=== PATIENT | female | born 1970 | race Caucasian/White ===

== ENCOUNTER 2021-12-23 11:25 | Emergency (ER) | payer BC, SELFPAY ==
[2021-12-23 11:43] VITALS: BP 167/91; PULSE 99; RESP 20; TEMP 36.4; O2SAT 98; BMI 33.3
--- NOTE | 2021-12-23 12:23 | CRLHL7_ITS ---
For Patients: As a result of the Century Cures Act, medical imaging exams and procedure reports are released immediately into your electronic medical record. You may view this report before your referring provider. If you have questions, please contact your health care provider. INDICATION: Right-sided neck pain and swelling TECHNIQUE: CT of the neck with 81 ml iodinated contrast agent. Coronal and sagittal reconstructions are included. COMPARISON: None available FINDINGS: On the night clerk auditor images, there appears to be a radiopaque BB in the right submandibular region, which is not included on the conventional images. No suspicious soft tissue mass, focal fluid collection, or pathologic lymphadenopathy in the region of the right neck BB marker or elsewhere in the suprahyoid/infrahilar neck. However, note is made of lobulated soft tissue within the left vallecula, arising from the lingual tonsil (series 3, images 34-35). The oral cavity and remaining pharyngeal mucosal spaces are unremarkable. Laryngeal structures appear within normal limits. Patent aerodigestive tract. Major salivary glands and thyroid gland have a normal appearance. Major cervical vasculature demonstrates expected contrast opacification. Cervical spondylosis, without evidence of critical foraminal or spinal canal stenosis. No gross osseous lesions. No acute abnormality identified within the included intracranial structures or lung apices. 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 IMPRESSION: 1. No suspicious findings in the region of the radiopaque BB marker in the right submandibular neck region. 2. Asymmetric lobulated soft tissue within the left vallecula, arising from the lingual tonsil. Advise direct visualization for further characterization. 3. No cervical lymphadenopathy by CT size criteria. Please note that all CT scans at this facility use dose modulation, iterative reconstruction, and/or weight-based dosing when appropriate to reduce radiation dose to as low as reasonably achievable. Dictated by Teresa Bernal MD @ 12/23/2021 2:03:45 PM (Electronically Signed)
--- NOTE | 2021-12-23 12:26 | ED_ITS ---
HPI - General Adult General Chief complaint: Sore Throat Stated complaint: Sore throat, cough Time Seen by Provider: 12/23/21 12:14 History of Present Illness HPI narrative: 51-year-old woman presenting to the emergency department with complaint of increasing pain in the right upper neck and sore throat. Increasing pain over the last 2 days. No fever. No particular exposures noted. No shortness of breath. Hurts a great deal to swallow but is able to do so. No rashes noted. 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 The to quit sounds like acetaminophen today which did not touch her pain. She does smoke. Related Data Home Medications Medication Instructions Recorded Confirmed doxepin 25 mg capsule 25 mg PO QHS 12/23/21 12/23/21 lisinopril 40 mg tablet 40 mg PO DAILY 12/23/21 12/23/21 Allergies Allergy/AdvReac Type Severity Reaction Status Date / Time No Known Drug Allergies Allergy Verified 12/23/21 11:41 Review of Systems Status of ROS: Reports: 6 or more systems reviewed and unremarkable except as noted in History and below [facility] Social History Smoking Status: Current every day smoker What tobacco products do you use: cigarettes Smoking packs per day: 0.5 Smoking cigarettes per day: 10.0 Do you use any of these nicotine containing products: None Second hand tobacco smoke exposure: No How often do you have a drink containing alcohol: monthly or less How many standard drinks containing alcohol do you have on a typical day: 3 or 4 How often do you have six or more drinks on one occasion: Never AUDIT-C Alcohol total score: 2 Non-prescribed substance use: denies use service: No Exam Narrative: Exam Narrative: Pleasant. NAD though clearly uncomfortable. Does look sore to speak. Breathing easily. Lungs are clear. Neck is supple though extremely tender to palpation in the right upper anterior neck which is a little full in this area as well. Sounds generally congested without facial swelling erythema or tenderness. He oropharynx is moist. Not a great deal of erythema but there is the 2+ swelling on the right tonsil versus the left. TMs are clear. Cardiovascular with elevated rate. Regular rhythm. Extremities are well perfused without edema. Const: Vital Signs, click to edit/add: Vital Signs - 24 hr 12/23/21 11:43 12/23/21 13:00 Temperature 97.6 F Pulse Rate [Pulse Oximeter] 99 90 Respiratory Rate 20 16 Blood Pressure [Ri ght Upper Arm] 167/91 H 148/96 H Pulse Oximetry 98 97 Oxygen Delivery Me thod Room Air Room Air Documenting provider has reviewed patient's vital signs: yes Course Course Hospital Course: Of primary concern is peritonsillar abscess. She is clearly asymmetric. IV will be established. Receiving ketorolac and normal saline. CT imaging pending. Reassuring white count, CRP slightly elevated. I did review CT imaging of the neck IV contrast--radiology over-read is below IMPRESSION: 1. No suspicious findings in the region of the radiopaque BB marker in the right submandibular neck region. 2. Asymmetric lobulated soft tissue within the left vallecula, arising from the lingual tonsil. Advise direct visualization for further characterization. 3. No cervical lymphadenopathy by CT size criteria. Given dexamethasone IV as well Did check for strep closer to departure which ultimately was negative. Reevaluation(s) Reevaluation #1: Improved but ultimately need more pain medication. I did spray her throat with Hurricaine spray anticipating departure and avoiding opiates with need to drive; and this helped a little bit as well though noted still with marked pain. Vital Signs Vital signs: Initial Vital Signs Temperature 97.6 F 12/23/21 11:43 Temperature Source Temporal Artery Scan 12/23/21 11:43 Pulse Rate 99 12/23/21 11:43 Pulse Rhythm 12/23/21 11:43 Pulse Strength 3+ Normal 12/23/21 11:43 Respiratory Rate 20 12/23/21 11:43 Blood Pressure 167/91 H 12/23/21 11:43 Blood Pressure Mean 116 12/23/21 11:43 Blood Pressure Position Supine 12/23/21 11:43 Pulse Oximetry 98 12/23/21 11:43 Oxygen Delivery Method 12/23/21 11:43 Vital Signs Temperature 97.6 F 12/23/21 11:43 Pulse Rate 99 12/23/21 11:43 Respiratory Rate 20 12/23/21 11:43 Blood Pressure 167/91 H 12/23/21 11:43 Pulse Oximetry 98 10/14/22 11:43 Oxygen Delivery Method 12/23/21 11:43 Temperature 97.6 F 12/23/21 11:43 Pulse Rate 90 12/23/21 13:00 Respiratory Rate 16 12/23/21 13:00 Blood Pressure 148/96 H 12/23/21 13:00 Pulse Oximetry 97 12/23/21 13:00 Oxygen Delivery Method 12/23/21 13:00 Medical Decision Making Lab Data Lab results reviewed: Yes I reviewed the patient's lab results Labs: Lab Results 12/23/21 12/23/21 12/23/21 Range/Units 12:44 12:44 12:44 WBC 5.94 (4.50-11.00) K/uL RBC 4.22 (4.00-5.20) m/uL Hgb 13.3 (12.0-16.0) gm/dL Hct 40.3 (33.0-51.0) % MCV 96 (80-100) fL MCH 32 (26-34) pg MCHC 33 (32-36) gm/dL RDW Coeff of Yael 12.2 (11.5-15.5) % Plt Count 323 (140-440) K/uL Neut % (Auto) 49.4 (42.0-72.0) % Lymph % (Auto) 40.7 (20-44) % Churchill % (Auto) 6.7 (0.0-11.0) % Eos % (Auto) 2.7 (0.0-7.0) % Baso % (Auto) 0.3 (0.0-3.0) % Neut # (Auto) 2.93 (1.7-7.0) K/uL Lymph # (Auto) 2.42 (0.90-2.90) K/uL Churchill # (Auto) 0.40 (0.00-0.90) K/UL Eos # (Auto) 0.16 (0.00-0.50) K/uL Baso # (Auto) 0.02 (0.00-0.30) K/uL Abs Immat Gran (auto) 0.01 (0.00-0.30) K/uL Sodium 141 (135-149) mmol/L Potassium 4.1 (3.6-5.1) mmol/L Chloride 108 (96-114) mmol/L Carbon Dioxide 24 (20-32) mmol/L BUN 17 (7-30) mg/dL Creatinine 0.8 (0.5-1.5) mg/dL Estimated Creat Clear 96.09 Estimated GFR 88 ml/min Glucose 112 (60-115) mg/dL Calcium 9.8 (8.4-10.6) mg/dL C-Reactive Protein 2.3 H (0.5-1.0) mg/dL SARS-CoV-2 (PCR) (Negative) Group A Strep DNA (No Detected) 12/23/21 12/23/21 Range/Units 12:44 14:22 WBC (4.50-11.00) K/uL RBC (4.00-5.20) m/uL Hgb (12.0-16.0) gm/dL Hct (33.0-51.0) % MCV (80-100) fL MCH (26-34) pg MCHC (32-36) gm/dL RDW Coeff of Yael (11.5-15.5) % Plt Count (140-440) K/uL Neut % (Auto) (42.0-72.0) % Lymph % (Auto) (20-44) % Churchill % (Auto) (0.0-11.0) % Eos % (Auto) (0.0-7.0) % Baso % (Auto) (0.0-3.0) % Neut # (Auto) (1.7-7.0) K/uL Lymph # (Auto) (0.90-2.90) K/uL Churchill # (Auto) (0.00-0.90) K/UL Eos # (Auto) (0.00-0.50) K/uL Baso # (Auto) (0.00-0.30) K/uL Abs Immat Gran (auto) (0.00-0.30) K/uL Sodium (135-149) mmol/L Potassium (3.6-5.1) mmol/L Chloride (96-114) mmol/L Carbon Dioxide (20-32) mmol/L BUN (7-30) mg/dL Creatinine (0.5-1.5) mg/dL Estimated Creat Clear Estimated GFR ml/min Glucose (60-115) mg/dL Calcium (8.4-10.6) mg/dL C-Reactive Protein (0.5-1.0) mg/dL SARS-CoV-2 (PCR) Negative SARS-CoV-2 (Negative) Group A Strep DNA NOT DETECTED (No Detected) Discharge Plan Discharge Clinical Impression: Tonsillar mass, Acute tonsillitis Patient Disposition: Home, Self-Care Condition: Stable Additional Instructions: Consider warm salt water gargles where you place 1/4 tsp of salt in 5-6 oz of warm water and gargle a couple of times daily. Can take up to 800 mg of ibuprofen per dose or up to 1000 mg of acetaminophen per dose. Alternate to the ibuprofen could be up to 500 mg of naproxen 2 times daily. Keep in mind that each tablet of [place] has 325 mg of acetaminophen in it. Stay well-hydrated. Might sleep under the mist of cool mist humidifier. Might try [id number] anesthetic throat sprays or lozenges like Chloraseptic or Sucrets. Regarding this swelling on your left tonsil, please make an appointment with Dr. Rodriguez at [facility] for follow-up appointment this next week if possible. Will call you if your strep test is positive [place] and prednisone from [facility] Prescriptions: No Action lisinopril 40 mg tablet 40 mg PO DAILY doxepin 25 mg capsule 25 mg PO QHS Stand Alone Forms: [employer] Info Instructions
[2021-12-23 13:00] VITALS: BP 148/96; PULSE 90; RESP 16; O2SAT 97
[2021-12-23] MEDS: ONDANSETRON 2 MG/ML inj 4 MG IVP (13:14)
[2021-12-23] MEDS: KETOROLAC 30 MG/ML inj IVP (13:14)
[2021-12-23] MEDS: 0.9 % SODIUM CHLORIDE 1000 ml 1,000 ML IV (13:14)
[2021-12-23 13:37] LABS: Basophils Absolute Auto 0.02 K/uL (0.00-0.30); Basophils Percent Auto 0.3 % (0.0-3.0); Eosinophils Absolute Auto 0.16 K/uL (0.00-0.50); Eosinophils Percent Auto 2.7 % (0.0-7.0); Hematocrit 40.3 % (33.0-51.0); Hemoglobin* 13.3 gm/dL (12.0-16.0); Immature Granulocytes Abs Auto 0.01 K/uL (0.00-0.30); Lymphocytes Absolute Auto 2.42 K/uL (0.90-2.90); Lymphocytes Percent Auto 40.7 % (20-44); Mean Corpuscular HGB Conc 33 gm/dL (32-36); Mean Corpuscular Hemoglobin 32 pg (26-34); Mean Corpuscular Volume 96 fL (80-100); Monocytes Percent Auto 6.7 % (0.0-11.0); Neutrophils Absolute Auto 2.93 K/uL (1.7-7.0); Neutrophils Percent Auto 49.4 % (42.0-72.0); Platelet Count* 323 K/uL (140-440); RDW Coefficient of Variation % 12.2 % (11.5-15.5); Red Blood Count 4.22 m/uL (4.00-5.20); White Blood Count* 5.94 K/uL (4.50-11.00)
[2021-12-23 13:39] LABS: Slide Review Reflex No
[2021-12-23 13:59] LABS: SARS PCR* Negative SARS-CoV-2 (Negative)
[2021-12-23 14:35] LABS: Chloride* 108 mmol/L (96-114); Potassium* 4.1 mmol/L (3.6-5.1); Sodium* 141 mmol/L (135-149)
[2021-12-23 14:38] LABS: Blood Urea Nitrogen* 17 mg/dL (7-30); Carbon Dioxide* 24 mmol/L (20-32); Creatinine* 0.8 mg/dL (0.5-1.5); Est. Creatinine Clearance* 96.09; Estimated Glomerular Filt Rate 88 ml/min
[2021-12-23 14:39] LABS: Calcium* 9.8 mg/dL (8.4-10.6); Glucose* 112 mg/dL (60-115)
[2021-12-23] MEDS: dexAMETHasone 4 MG/ML VIAL 10 MG IV (14:40)
[2021-12-23 14:41] LABS: C Reactive Protein* 2.3 mg/dL (0.5-1.0)
[2021-12-23 15:30] LABS: Strep A DNA Probe* NOT DETECTED (No Detected)
== END 2021-12-23 14:40 | disposition home or self-care (01) ==
PROVIDERS: Emergency Provider Family Medicine; PCP Physician Assistant Medical
DX: J03.90 Acute tonsillitis, unspecified (principal); F17.210 Nicotine dependence, cigarettes, uncomplicated; R93.89 Abnormal findings on diagnostic imaging of other specified body structures
CPT/HCPCS: 36415; 70491; 80048; 85025; 86140; 87635; 87651; 96361; 96374; 96375; 99283; 99284; J1100; J1885; J2405; J7030; Q9967

== ENCOUNTER 2022-05-31 08:02 | Outpatient (CLI) | payer BC, SELFPAY | END 2022-05-31 08:03 | disposition home or self-care (01) | LOC: AMB 11:46 | PROVIDERS: PCP Physician Assistant Medical; Visit Provider Family Medicine | DX: R45.851 Suicidal ideations (principal); F10.129 Alcohol abuse with intoxication, unspecified | CPT/HCPCS: A0425; A0427 ==

== ENCOUNTER 2022-05-31 08:17 | Emergency (ER) | payer BC, SELFPAY ==
[2022-05-31] VITALS (24 sets, daily range): BP systolic 141–179; BP diastolic 78–92; PULSE 98–116; RESP 12–36; TEMP 36.6; O2SAT 89–100; BMI 32.3
--- NOTE | 2022-05-31 08:29 | ED_ITS ---
HPI - General Adult General Time Seen by Provider: 08:29 Date Seen: 05/31/22 Chief complaint: Alcohol/Intoxication Stated complaint: suicidal Time Seen by Provider: 05/31/22 08:19 Source: EMS Mode of arrival: ambulatory Limitations: altered mental status History of Present Illness HPI narrative: Patient is a 51-year-old female has had a history of depression suicidal ideation in the past. She reports that she has been drinking heavily, and actually had a scarf tied around her neck today, she decided not to go through this and called an ambulance who brought her to the hospital. She reports she is nauseated does not feel well. Has had suicidal ideation, depression. Patient reports she has been drinking a lot alcohol. She denies physical planes complains of present other than nausea, no chest pain, no shortness of breath, no fevers chills weight loss. Patient has had intermittent depressions been significant. Her past history on chart review indicates major depressive disorder history of suicidal ideation COPD tobacco smoking peptic ulcer disease history of QT prolongation the past history of seizure right-sided weakness resolved alcohol abuse hyperlipidemia hypertension constipation tubal ligation appendectomy C- section Related Data Home Medications Medication Instructions Recorded Confirmed doxepin 25 mg capsule 25 mg PO QHS 12/23/21 12/23/21 lisinopril 40 mg tablet 40 mg PO DAILY 12/23/21 12/23/21 Allergies Allergy/AdvReac Type Severity Reaction Status Date / Time No Known Drug Allergies Allergy Verified 05/31/22 08:21 Review of Systems Status of ROS: Reports: 6 or more systems reviewed and unremarkable except as noted in History and below PFSH PFSH Social History Smoking Status: Current every day smoker What tobacco products do you use: cigarettes Smoking packs per day: 0.5 Smoking cigarettes per day: 10.0 Do you use any of these nicotine containing products: None Second hand tobacco smoke exposure: No How often do you have a drink containing alcohol: monthly or less How many standard drinks containing alcohol do you have on a typical day: 3 or 4 AUDIT-C Alcohol total score: 2 Non-prescribed substance use: denies use service: No Exam Narrative: Exam Narrative: Objective: Patient is alert or x3, blood sugar was in the normal range in the ambulance She is alert orient x3, smells a little bit of alcohol She is complaining of nausea, no other complaints. HEENT is unremarkable neck supple chest clear heart rhythm regular 2/6 systolic murmur Abdomen benign obese nontender Extremities are no edema neurologic nonfocal Good peripheral perfusion noted Skin warm and dry Const: Vital Signs, click to edit/add: Vital Signs - 24 hr 05/31/22 08:21 05/31/22 08:26 05/31/22 09:11 Temperature 97.8 F Pulse Rate 110 H Pulse Rate [Pulse Oximeter] 111 H Respiratory Rate 36 H Blood Pressure Blood Pressure [Le ft Upper Arm] 141/78 H Pulse Oximetry 94 91 91 Oxygen Delivery Me thod Room Air Room Air 05/31/22 09:25 05/31/22 09:32 05/31/22 10:02 Temperature Pulse Rate 106 H 107 H Pulse Rate [Pulse Oximeter] Respiratory Rate Blood Pressure 178/84 H 146/83 H Blood Pressure [Le ft Upper Arm] Pulse Oximetry 92 95 Oxygen Delivery Me thod 05/31/22 10:32 Temperature Pulse Rate 107 H Pulse Rate [Pulse Oximeter] Respiratory Rate Blood Pressure 154/87 H Blood Pressure [Le ft Upper Arm] Pulse Oximetry 91 Oxygen Delivery Me thod Course Vital Signs Vital signs: Initial Vital Signs Temperature 97.8 F 05/31/22 08:21 Temperature Source Temporal Artery Scan 05/31/22 08:21 Pulse Rate 111 H 05/31/22 08:21 Respiratory Rate 36 H 05/31/22 08:21 Blood Pressure 141/78 H 05/31/22 08:21 Blood Pressure Mean 99 05/31/22 08:21 Blood Pressure Position Sitting 05/31/22 08:21 Pulse Oximetry 94 05/31/22 08:21 Oxygen Delivery Method Room Air 05/31/22 08:21 Vital Signs Temperature 97.8 F 05/31/22 08:21 Pulse Rate 111 H 05/31/22 08:21 Respiratory Rate 36 H 05/31/22 08:21 Blood Pressure 141/78 H 05/31/22 08:21 Pulse Oximetry 94 05/31/22 08:21 Oxygen Delivery Method Room Air 05/31/22 08:21 Temperature 97.8 F 05/31/22 18:44 Pulse Rate 111 H 05/31/22 18:44 Respiratory Rate 16 05/31/22 18:44 Blood Pressure 141/78 H 05/31/22 18:44 Pulse Oximetry 95 05/31/22 18:00 Oxygen Delivery Method Room Air 05/31/22 18:00 Medical Decision Making MDM Narrative Medical decision making narrative: Patient is a 51-year-old female history of suicidal ideation and depression. Had a suicidal plan, likely well as alcohol intoxicated. At this point will give the patient IV fluids, banana bag, IV Zofran if her EKG shows no QT prolongation. Check electrolytes and labs, salicylate, Tylenol level. Will make a deck Telehealth assessment when the patient is clinically stable in terms of nausea and alcohol level assessed. At this point she does not appear to be clinically very intoxicated. She certainly could have a elevated alcohol level given her chronic alcohol use. Disposition pending above. Addendum: The patient's EKG shows sinus tachycardia otherwise unremarkable at 110 beats per minute, her troponin is negative, her alcohol level is 0.15%, negative qualitative hCG, salicylate troponin are negative as mention, white count hemoglobin are normal ER profile is unremarkable, urinalysis unremarkable, urinalysis positive for marijuana . At this point the patient will be assessed by deck Telehealth assessment, clinically she is not intoxicated, she likely needs inpatient care given her history of depression alcoholism suicidal at gesture and consideration of attempt and ideation. Addendum: Deck Telehealth assessment felt that the patient needs inpatient psychiatric care. 72 hour hold sign, transfer sheets completed. Patient is stable at this point for transfer. Will give her some Ativan as she has had some nausea and generalized discomfort. Lab Data Labs: Lab Results 05/31/22 05/31/22 05/31/22 Range/Units 08:20 08:56 09:08 WBC 8.97 (4.50-11.00) K/uL RBC 4.11 (4.00-5.20) m/uL Hgb 12.9 (12.0-16.0) gm/dL Hct 38.8 (33.0-51.0) % MCV 94 (80-100) fL MCH 31 (26-34) pg MCHC 33 (32-36) gm/dL RDW Coeff of Yael 13.1 (11.5-15.5) % Plt Count 386 (140-440) K/uL Neut % (Auto) 70.4 (42.0-72.0) % Lymph % (Auto) 24.6 (20-44) % [place] % (Auto) 4.5 (0.0-11.0) % Eos % (Auto) 0.1 (0.0-7.0) % Baso % (Auto) 0.2 (0.0-3.0) % Neut # (Auto) 6.31 (1.7-7.0) K/uL Lymph # (Auto) 2.21 (0.90-2.90) K/uL [place] # (Auto) 0.40 (0.00-0.90) K/UL Eos # (Auto) 0.01 (0.00-0.50) K/uL Baso # (Auto) 0.02 (0.00-0.30) K/uL Sodium 138 (135-149) mmol/L Potassium 3.8 (3.6-5.1) mmol/L Chloride 107 (96-114) mmol/L Carbon Dioxide 21 (20-32) mmol/L BUN 9 (7-30) mg/dL Creatinine 0.7 (0.5-1.5) mg/dL Estimated Creat Clear 106.49 Estimated GFR 103 ml/min Glucose 87 (60-115) mg/dL Calcium 8.3 L (8.4-10.6) mg/dL Total Bilirubin 0.3 (0.1-1.5) mg/dL Direct Bilirubin 0.2 (0.0-0.5) mg/dL AST 26 (12-35) U/L ALT 20 (4-35) U/L Alkaline Phosphatase 87 (40-150) U/L Troponin I < 0.01 L (0.01-0.04) ng/mL Total Protein 7.1 (6.0-8.3) g/dL Albumin 4.3 (3.3-5.0) g/dL HCG, Qual Negative (Negative) Urine Color Yellow (Yellow) Urine Appearance Clear (Clear) Urine pH 5.0 (5.0-8.5) Ur Specific Clancy 1.015 (1.000-1.030) Urine Protein Negative (Negative) Urine Glucose (UA) Negative (Negative) Urine Ketones Negative (Negative) Urine Blood Trace-intact A (Negative) Urine Nitrite Negative (Negative) Urine Bilirubin Negative (Negative) Urine Urobilinogen 0.2 (0.2-1.0) Ur Leukocyte Esterase Negative (Negative) Urine RBC 0-2 (0-2) Urine WBC 0-2 (0-5) Ur Squamous Epith Cells Few (None-Few) Urine Bacteria None (None) Salicylates < 1.0 L (1.0-10) mg/dL Urine Opiates Screen Negative (Negative) Ur Oxycodone Screen Negative (Negative) Urine Methadone Screen Negative (Negative) Ur Propoxyphene Screen Negative (Negative) Acetaminophen < 10.0 L (10.0-30.0) ug/mL Ur Barbiturates Screen Negative (Negative) U Tricyclic Antidepress Negative (Negative) Ur Phencyclidine Scrn Negative (Negative) Ur Amphetamines Screen Negative (Negative) U Methamphetamines Scrn Negative (Negative) U Benzodiazepines Scrn Negative (Negative) Urine Cocaine Screen Negative (Negative) U Marijuana (THC) Screen POSITIVE A* (Negative) Ur Drug Screen Comment See Note Ethyl Alcohol 0.15 H (0.01-0.03) % SARS-CoV-2 (PCR) Negative SARS-CoV-2 (Negative) Influenza Type A (PCR) Negative PCR FLU A (Negative) Influenza Type B (PCR) Negative PCR FLU B (Negative) RSV (PCR) Negative PCR RSV (Negative) Discharge Plan Discharge Clinical Impression: Alcoholic intoxication, Suicidal behavior Patient Disposition: Xfer Psychiatric Hosp Condition: Stable Prescriptions: No Action lisinopril 40 mg tablet 40 mg PO DAILY doxepin 25 mg capsule 25 mg PO QHS Stand Alone Forms: MyHealth Info Instructions
[2022-05-31] MEDS: ONDANSETRON 2 MG/ML inj 4 MG IVP (09:00)
[2022-05-31] MEDS: PANTOPRAZOLE SODIUM 40 MG INJ IVP (09:00)
[2022-05-31] MEDS: 0.9 % SODIUM CHLORIDE 1000 ml 1,000 ML 1200 ML IV (09:00)
[2022-05-31 09:15] LABS: Basophils Absolute Auto 0.02 K/uL (0.00-0.30); Basophils Percent Auto 0.2 % (0.0-3.0); Eosinophils Absolute Auto 0.01 K/uL (0.00-0.50); Eosinophils Percent Auto 0.1 % (0.0-7.0); Hematocrit 38.8 % (33.0-51.0); Hemoglobin* 12.9 gm/dL (12.0-16.0); Immature Granulocytes Abs Auto 0.02 K/uL (0.00-0.30); Immature Granulocytes Pct Auto 0.2 %; Lymphocytes Absolute Auto 2.21 K/uL (0.90-2.90); Lymphocytes Percent Auto 24.6 % (20-44); Mean Corpuscular HGB Conc 33 gm/dL (32-36); Mean Corpuscular Hemoglobin 31 pg (26-34); Mean Corpuscular Volume 94 fL (80-100); Monocytes Percent Auto 4.5 % (0.0-11.0); Neutrophils Absolute Auto 6.31 K/uL (1.7-7.0); Neutrophils Percent Auto 70.4 % (42.0-72.0); Platelet Count* 386 K/uL (140-440); RDW Coefficient of Variation % 13.1 % (11.5-15.5); Red Blood Count 4.11 m/uL (4.00-5.20); White Blood Count* 8.97 K/uL (4.50-11.00)
[2022-05-31 09:29] LABS: Slide Review Reflex No
[2022-05-31 09:34] LABS: Appearance Urine Clear (Clear); Bilirubin Urine Negative (Negative); Blood Urine Trace-intact (Negative); Color Urine Yellow (Yellow); Glucose Urine Negative (Negative); Ketones Urine Negative (Negative); Leukocyte Esterase Urine Negative (Negative); Nitrite Urine Negative (Negative); Protein Urine Negative (Negative); Specific Gravity Urine 1.015 (1.000-1.030); Urobilinogen Urine 0.2 (0.2-1.0)
[2022-05-31 09:41] LABS: Amphetamine Screen Urine Negative (Negative); Barbiturate Screen Urine Negative (Negative); Benzodiazepines Screen Urine Negative (Negative); Cocaine Screen Urine Negative (Negative); Methadone Screen Urine Negative (Negative); Methamphetamines Screen Urine Negative (Negative); Opiate Screen Urine Negative (Negative); Oxycodone Screen Urine Negative (Negative); Phencyclidine Screen Urine Negative (Negative); Tricyclic Antidepressant Urine Negative (Negative)
[2022-05-31 09:44] LABS: Cannabinoid Screen Urine POSITIVE (Negative)
[2022-05-31 09:50] LABS: Albumin* 4.3 g/dL (3.3-5.0)
[2022-05-31 09:51] LABS: Chloride* 107 mmol/L (96-114); Potassium* 3.8 mmol/L (3.6-5.1); Sodium* 138 mmol/L (135-149)
[2022-05-31 09:53] LABS: Aspartate Amino Transferase* 26 U/L (12-35); Bilirubin Direct* 0.2 mg/dL (0.0-0.5); Bilirubin Total* 0.3 mg/dL (0.1-1.5); Carbon Dioxide* 21 mmol/L (20-32); Creatinine* 0.7 mg/dL (0.5-1.5); Est. Creatinine Clearance* 106.49; Estimated Glomerular Filt Rate 103 ml/min; Total Protein* 7.1 g/dL (6.0-8.3)
[2022-05-31 09:54] LABS: Alanine Aminotransferase* 20 U/L (4-35); Alkaline Phosphatase* 87 U/L (40-150); Blood Urea Nitrogen* 9 mg/dL (7-30); Calcium* 8.3 mg/dL (8.4-10.6); Glucose* 87 mg/dL (60-115)
[2022-05-31 09:54] LABS: PCR FLU A Negative PCR FLU A (Negative); PCR FLU B Negative PCR FLU B (Negative); PCR RSV Negative PCR RSV (Negative)
[2022-05-31 09:55] LABS: SARS PCR* Negative SARS-CoV-2 (Negative)
[2022-05-31 09:55] LABS: Acetaminophen* < 10.0 ug/mL (10.0-30.0); Ethanol* 0.15 % (0.01-0.03); Salicylate* < 1.0 mg/dL (1.0-10)
[2022-05-31 09:57] LABS: HCG Qualitative Serum* Negative (Negative)
[2022-05-31 10:04] LABS: RBC Urine 0-2 (0-2); Squamous Epithelial Cell Urine Few (None-Few); WBC Urine 0-2 (0-5)
[2022-05-31 10:06] LABS: Troponin I* < 0.01 ng/mL (0.01-0.04)
[2022-05-31] MEDS: LORazepam 2 MG/ML inj 0.5 MG IVP (13:02)
[2022-05-31] MEDS: ACETAMINOPHEN 500 MG TABLET 1000 MG PO (14:11)
[2022-05-31] MEDS: KETOROLAC 10 MG TABLET PO (14:12)
[2022-05-31] MEDS: HYDROCODONE/ACETAMIN 7.5-325 TABLET 1 TAB PO (15:46)
--- NOTE | 2022-05-31 18:25 | ED.NURSE ---
Awaiting EMS transport. Safety meal tray packed to send with Pt.
--- NOTE | 2022-05-31 18:41 | ED.NURSE ---
Report given to EMS. Pt leaves via EMS cot with belongings and to-go meal. [facility] Staff notified of departure from ED.
--- NOTE | 2022-05-31 20:16 | PC.NURSE ---
Raleigh Saenz called and asked for patient update. this person is not listed as a contact in patients chart, patient left with EMS already to be transferred to [facility]. call placed to [facility] and husbands name and phone number given to [facility] nurse to call him with an updated when they receive the patient and can ask if she would like this person to receive information.
== END 2022-05-31 18:44 ==
PROVIDERS: Emergency Provider Family Medicine; PCP Physician Assistant Medical
DX: F10.129 Alcohol abuse with intoxication, unspecified (principal); R45.851 Suicidal ideations
CPT/HCPCS: 36415; 80048; 80076; 80143; 80179; 80306; 81001; 82077; 84484; 84703; 85025; 87502; 87634; 87635; 93005; 94761; 96374; 96375; 99285; A9270; C9113; J2060; J2405; J3411; J7030

== ENCOUNTER 2022-05-31 18:36 | Outpatient (CLI) | payer BC, SELFPAY | END 2022-05-31 18:37 | disposition home or self-care (01) | LOC: AMB 22:34 | PROVIDERS: PCP Physician Assistant Medical; Visit Provider Family Medicine | DX: R45.851 Suicidal ideations (principal); F10.129 Alcohol abuse with intoxication, unspecified | CPT/HCPCS: A0425; A0427; A0428 ==

== ENCOUNTER 2022-08-24 16:19 | Emergency (ER) | payer SELFPAY ==
[2022-08-24 16:24] VITALS: BP 192/103; PULSE 90; RESP 18; TEMP 37.1; O2SAT 97; BMI 33.3
--- NOTE | 2022-08-24 16:43 | CRLHL7_ITS ---
For Patients: As a result of the Cures Act, medical imaging exams and procedure reports are released immediately into your electronic medical record. You may view this report before your referring provider. If you have questions, please contact your health care provider. Indication: Injury. Technique: Three views views right 1st finger. Comparison: None. Findings/Impression: No acute displaced fracture or malalignment. No soft tissue swelling. Joint spaces are maintained. Bony mineralization is age appropriate. Dictated by Rian Wise MD @ 08/24/2022 5:41:36 PM (Electronically Signed)
--- NOTE | 2022-08-24 16:43 | ED.UPPEXIN ---
HPI - Extremity Injury (Upper) General Chief Complaint: Extremity Pain/Injury, Upper Stated Complaint: Thumbnail Injury Time Seen by Provider: 08/24/22 16:22 History of Present Illness HPI narrative: This 51-year-old female was at work when some pants fell down onto her right thumb. She has a subungual hematoma and reports pain in this area. There is no break in the nail or laceration to the skin. She does not report any other injury. Related Data Home Medications Medication Instructions Recorded Confirmed doxepin 25 mg capsule 25 mg PO QHS 12/23/21 12/23/21 lisinopril 40 mg tablet 40 mg PO DAILY 12/23/21 12/23/21 Previous Rx's Medication Instructions Recorded hydrocodone 5 mg-acetaminophen 325 1 tab PO Q4-6H PRN pain #10 tabs 08/24/22 mg tablet Allergies Allergy/AdvReac Type Severity Reaction Status Date / Time No Known Drug Allergies Allergy Verified 08/24/22 16:33 Review of Systems Status of ROS: Reports: 10 or more systems reviewed and unremarkable except as noted in History and below Narrative: Constitutional: No fevers, no weight gain or loss. Eyes: No discharge. No vision changes. HENT: No congestion, no sore throat, no ear pain. Cardiovascular: No chest pain, no palpitations. Respiratory: No shortness of breath, no wheezes, no cough. Gastrointestinal: No abdominal pain, no vomiting, no diarrhea. Genitourinary: No dysuria, no hematuria. Musculoskeletal: Normal range of motion. Right thumb injury as described above. Skin: No rashes, no pruritis. Neurological: No dizziness, weakness, sensory change, speech change. Endo/Heme/Allergies: No bruising or bleeding. No polydipsia. Pysch: no suicidality, no anxiety, no insomnia. All other systems reviewed and are negative. [facility] Social History Smoking Status: Current every day smoker What tobacco products do you use: cigarettes Smoking packs per day: 0.5 Smoking cigarettes per day: 10.0 Do you use any of these nicotine containing products: None Second hand tobacco smoke exposure: No How often do you have a drink containing alcohol: monthly or less How many standard drinks containing alcohol do you have on a typical day: 3 or 4 AUDIT-C Alcohol total score: 2 Non-prescribed substance use: denies use service: No Exam Narrative: Exam Narrative: Constitutional: Well-developed, well-nourished, no acute distress. HEENT: Normocephalic, atraumatic. Neck: Normal range of motion. Nontender. Supple. Heart: Intact distal pulses. Lungs: No chest discomfort. No wheezes, rhonchi, or rales. Abdomen: Nontender. Back: Normal range of motion. Extremities: Normal range of motion. Bruising under the right thumbnail. No sign of deformity or skin laceration. There is no bleeding externally. Skin: Intact. No rash. Warm. No erythema or pallor. Neurologic: No altered sensation. No weakness. Alert and oriented. Psychiatric: No suicidality. No anxiety or depression. No insomnia. Nursing notes and vitals signs are reviewed. Const: Vital Signs, click to edit/add: Vital Signs - 24 hr 08/24/22 16:24 Temperature 98.8 F Pulse Rate [Right Pulse Oximeter] 90 Respiratory Rate 18 Blood Pressure [Ri ght Upper Arm] 192/103 H Pulse Oximetry 97 Oxygen Delivery Me thod Room Air Course Vital Signs Vital signs: Initial Vital Signs Temperature 98.8 F 08/24/22 16:24 Temperature Source Temporal Artery Scan 08/24/22 16:24 Pulse Rate 90 08/24/22 16:24 Pulse Rhythm Regular 08/24/22 16:24 Pulse Strength 3+ Normal 08/24/22 16:24 Respiratory Rate 18 08/24/22 16:24 Blood Pressure 192/103 H 08/24/22 16:24 Blood Pressure Mean 132 H 08/24/22 16:24 Blood Pressure Position Sitting 08/24/22 16:24 Pulse Oximetry 97 08/24/22 16:24 Oxygen Delivery Method Room Air 08/24/22 16:24 Vital Signs Temperature 98.8 F 08/24/22 16:24 Pulse Rate 90 08/24/22 16:24 Respiratory Rate 18 08/24/22 16:24 Blood Pressure 192/103 H 08/24/22 16:24 Pulse Oximetry 97 08/24/22 16:24 Oxygen Delivery Method Room Air 08/24/22 16:24 Temperature 98.8 F 08/24/22 16:24 Pulse Rate 90 06/15/23 16:24 Respiratory Rate 18 08/24/22 16:24 Blood Pressure 192/103 H 08/24/22 16:24 Pulse Oximetry 97 08/24/22 16:24 Oxygen Delivery Method Room Air 08/24/22 16:24 MDM - Extremity Injury (Upper) MDM Narrative Medical decision making narrative: This patient comes in with an injury to her right thumb. An x-ray is obtained and radiology report is pending. There is no obvious fracture but may be a subtle nondisplaced crack in the distal portion of the right thumb. The patient does have a subungual hematoma. She is agreeable to have this drained. I did use a cautery tool to sr the nail. There was not much drainage that occurred. The patient did receive an oral tablet of [place] and a thumb splint. Discharge Plan Discharge Clinical Impression: Subungual hematoma of digit of hand Patient Disposition: Home, Self-Care Condition: Stable Additional Instructions: Take medication as needed and indicated. Activity as tolerated. Follow up with MD or return if worsening. Prescriptions: New hydrocodone-acetaminophen 5-325 mg tablet 1 tab PO Q4-6H PRN (Reason: pain) Qty: 10 0RF No Action lisinopril 40 mg tablet 40 mg PO DAILY doxepin 25 mg capsule 25 mg PO QHS Follow Up/Referrals: Kelin Aguirre PA-C [Primary Care Provider] - Stand Alone Forms: MyHealth Info Instructions
== END 2022-08-24 17:24 | disposition home or self-care (01) ==
PROVIDERS: Emergency Provider Emergency Medicine Emergency Medical Services; PCP Physician Assistant Medical
DX: S60.111A Contusion of right thumb with damage to nail, initial encounter (principal); W22.8XXA Striking against or struck by other objects, initial encounter
CPT/HCPCS: 11740; 73140; 99283; 99284

== ENCOUNTER 2022-10-16 23:38 | Outpatient (CLI) | payer BC, SELFPAY | END 2022-10-16 23:39 | disposition home or self-care (01) | LOC: AMB 10-18 13:34 | PROVIDERS: PCP Physician Assistant Medical; Visit Provider Family Medicine | DX: F10.129 Alcohol abuse with intoxication, unspecified (principal) | CPT/HCPCS: A0425; A0429 ==

== ENCOUNTER 2023-03-20 15:13 | Emergency (ER) | payer BC, SELFPAY ==
[2023-03-20] VITALS (8 sets, daily range): BP systolic 144; BP diastolic 89; PULSE 72–93; RESP 18; TEMP 36.7; O2SAT 89–99; BMI 32.3
[2023-03-20 16:10] LABS: PCR FLU A Negative PCR FLU A (Negative); PCR FLU B Negative PCR FLU B (Negative); PCR RSV Negative PCR RSV (Negative); SARS PCR* Negative SARS-CoV-2 (Negative)
--- NOTE | 2023-03-20 16:12 | ED_ITS ---
HPI - General Adult General Date Seen: 03/20/23 Chief complaint: Cough Stated complaint: Congestion, cough Time Seen by Provider: 03/20/23 15:57 History of Present Illness HPI narrative: This is a pleasant 48-year-old female with a history of tobacco use, previous diagnosis of COPD (has rarely been on prednisone orally in the past, has a albuterol inhaler that she uses occasionally-but does not really help), hypertension, but otherwise healthy who presents to the ER today for cough, back pain, body aches, sore throat, fatigue, and generally feeling unwell. She notes that she has had a cough ongoing for ?a long time? and can not be more specific than that, but it sounds like it has been a cough for may be a few months. She does not know of any specific trigger for the cough other than she does note she is a smoker. For about the past week or so she has been ill with additional symptoms including fatigue, body aches, back pain, in particular pain in her left posterior ribcage, sore throat, stuffy nose, worsening cough with production of sputum. Some sputum has been purulent and some has been tinged with blood. She has also had fever for the past couple of days. She had some diarrhea yesterday. She has had some chest tightness all week long. 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 No known specific exposures but has been around many people from the public. No history of diabetes, cancer, immunosuppression. No history of kidney or liver disease. She has been using her albuterol inhaler, occasionally, but does not feel like it helps. Related Data Home Medications Medication Instructions Recorded Confirmed doxepin 25 mg capsule 25 mg PO QHS 12/23/21 03/20/23 lisinopril 40 mg tablet 40 mg PO DAILY 12/23/21 03/20/23 amlodipine 10 mg tablet 10 mg PO DAILY 03/20/23 03/20/23 hydroxyzine HCl 25 mg tablet 25 mg PO Q6H PRN anxiety 03/20/23 03/20/23 Allergies Allergy/AdvReac Type Severity Reaction Status Date / Time No Known Drug Allergies Allergy Verified 03/20/23 15:22 [facility] Social History Smoking Status: Heavy tobacco smoker What tobacco products do you use: cigarettes Smoking packs per day: 0.5 Smoking cigarettes per day: 10.0 Years smoked: 40 Smoking pack-years: 20.00 Do you use any of these nicotine containing products: None Second hand tobacco smoke exposure: No How often do you have a drink containing alcohol: 2-3 times a week How many standard drinks containing alcohol do you have on a typical day: 3 or 4 How often do you have six or more drinks on one occasion: Never AUDIT-C Alcohol total score: 4 Non-prescribed substance use: denies use service: No Exam Narrative: Exam Narrative: Constitutional: Appears well-developed and well-nourished. Alert. Lying back in bed and looks tired and worn out, but is overall Conversant. Non toxic. HENT: Head: Atraumatic. Nose: Nose normal. Right TM is slightly pink but not erythematous and bulging. Left TM is normal. Mouth/Throat: Oral mucosa is clear and moist. no trismus. Says she has the sore throat, but really on exam, Pharynx normal. Tonsils symmetric. No tonsillar enlargement, erythema, or exudate. Eyes: Conjunctivae normal. EOM normal. Pupils equal, round, and reactive to light. No scleral icterus. Neck: Normal range of motion. Neck supple. No tracheal deviation present. Cardiovascular: Normal rate, regular rhythm. No gallop. No friction rub. No murmur heard. Symmetric radial artery pulses Pulmonary/Chest: Effort normal. No stridor. No respiratory distress. Although she has this history of COPD, No wheezes. No rales. No rhonchi . No tenderness. Abdominal: Soft. Bowel sounds normal. No distension. No mass. No tenderness. No rebound. No guarding. Musculoskeletal: RUE: Normal range of motion. No tenderness. No deformity LUE: Normal range of motion. No tenderness. No deformity RLE: Normal range of motion. No edema. No tenderness. No deformity LLE: Normal range of motion. No edema. No tenderness. No deformity Lymph: No cervical adenopathy. Neurological: Alert and oriented to person, place, and time. Normal strength. CN II-VII intact. No sensory deficit. GCS eye subscore is 4. GCS verbal subscore is 5. GCS motor subscore is 6. Normal coordination Skin: Skin is warm and dry. No rash noted. No pallor. Normal capillary refill. Psychiatric: Normal mood. Normal affect. Const: Vital Signs, click to edit/add: Vital Signs - 24 hr 03/20/23 15:19 03/20/23 15:37 03/20/23 16:01 Temperature 98.1 F Pulse Rate 86 80 Pulse Rate [Pulse Oximeter] 93 Respiratory Rate 18 Blood Pressure [Ri ght Upper Arm] 144/89 H Pulse Oximetry 99 90 89 Oxygen Delivery Me thod Room Air 03/20/23 16:33 03/20/23 17:00 03/20/23 17:30 Temperature Pulse Rate 80 80 72 Pulse Rate [Pulse Oximeter] Respiratory Rate Blood Pressure [Ri ght Upper Arm] Pulse Oximetry 99 96 94 Oxygen Delivery Me thod 03/20/23 18:00 03/20/23 18:34 Temperature Pulse Rate 79 76 Pulse Rate [Pulse Oximeter] Respiratory Rate Blood Pressure [Ri ght Upper Arm] Pulse Oximetry 98 Oxygen Delivery Me thod Course Vital Signs Vital signs: Initial Vital Signs Temperature 98.1 F 03/20/23 15:19 Temperature Source Temporal Artery Scan 03/20/23 15:19 Pulse Rate 93 03/20/23 15:19 Respiratory Rate 18 03/20/23 15:19 Blood Pressure 144/89 H 03/20/23 15:19 Blood Pressure Mean 107 H 03/20/23 15:19 Blood Pressure Position Sitting 03/20/23 15:19 Pulse Oximetry 99 03/20/23 15:19 Oxygen Delivery Method Room Air 03/20/23 15:19 Vital Signs Temperature 98.1 F 03/20/23 15:19 Pulse Rate 93 03/20/23 15:19 Respiratory Rate 18 03/20/23 15:19 Blood Pressure 144/89 H 03/20/23 15:19 Pulse Oximetry 99 03/20/23 15:19 Oxygen Delivery Method Room Air 03/20/23 15:19 Temperature 98.1 F 03/20/23 15:19 Pulse Rate 76 03/20/23 18:34 Respiratory Rate 18 03/20/23 15:19 Blood Pressure 144/89 H 03/20/23 15:19 Pulse Oximetry 98 03/20/23 18:00 Oxygen Delivery Method Room Air 03/20/23 15:19 Medications Administered Medications: Discontinued Medications Generic Name Dose Route Start Last Admin Trade Name Freq PRN Reason Stop Dose Admin Hydrocodone Bitart/Acetaminophen 1 tab 03/20/23 16:53 03/20/23 16:59 Hydrocodone-Acetamin 5-325 Mg 1 Tab PO 03/20/23 16:54 1 tab ONCE ONE Administration Hydrocodone Bitart/Acetaminophen 1 tab 03/20/23 18:00 03/20/23 18:05 Hydrocodone-Acetamin 5-325 Mg 1 Tab PO 03/20/23 18:01 1 tab ONCE ONE Administration Ibuprofen 600 mg 03/20/23 17:00 03/20/23 17:01 Ibuprofen 200 Mg Tablet PO 03/20/23 17:01 Not Given ONCE ONE Ondansetron HCl 4 mg 03/20/23 16:53 03/20/23 16:58 Ondansetron Odt 4 Mg Tab PO 03/20/23 16:54 4 mg ONCE ONE Administration Medical Decision Making MDM Narrative Medical decision making narrative: This patient presents for evaluation of cough, nasal congestion. She actually has a chronic cough that is now worst and changed over the past week or so. This is consistent with an upper respiratory tract infection. Viral testing negative for coronavirus, influenza, RSV.. Given duration of cough as well as her tobacco use, we did obtain chest x-ray, which is fortunately negative for any acute focal pneumonia. She has a history of COPD and tobacco use but is really now wheezy on her lung exam today to suggest COPD exacerbation. Unlikely to benefit from bronchodilators or steroids at this time. There is no signs at this point of serious bacterial infection such as OM, RPA, epiglottitis, INFORMATION TECHNOLOGY SECURITY ANALYST, strep pharyngitis, sinusitis, meningitis, bacteremia, serious bacterial infection. With reported chest tightness we did obtain screening EKG and labs which are reassuring. I strongly suspect the chest tightness is related to her upper respiratory infection. There are no gastrointestinal symptoms at this point and no signs of dehydration. Close followup with primary care physician is indicated. Return to ED for fever > 103, protracted vomiting, confusion, or other worsening. Given history of tobacco use and for protracted cough will cover with course of antibiotics for possible atypical bacterial infection. Precautions for return to the ER reviewed and questions answered. Lab Data Labs: Lab Results 03/20/23 03/20/23 Range/Units 15:25 16:32 WBC 5.83 (4.50-11.00) K/uL RBC 4.16 (4.00-5.20) m/uL Hgb 12.9 (12.0-16.0) gm/dL Hct 39.5 (33.0-51.0) % MCV 95 (80-100) fL MCH 31 (26-34) pg MCHC 33 (32-36) gm/dL RDW Coeff of Yael 13.0 (11.5-15.5) % Plt Count 311 (140-440) K/uL Neut % (Auto) 53.3 (42.0-72.0) % Lymph % (Auto) 34.0 (20-44) % [place] % (Auto) 8.7 (0.0-11.0) % Eos % (Auto) 3.3 (0.0-7.0) % Baso % (Auto) 0.5 (0.0-3.0) % Neut # (Auto) 3.11 (1.7-7.0) K/uL Lymph # (Auto) 1.98 (0.90-2.90) K/uL [place] # (Auto) 0.50 (0.00-0.90) K/UL Eos # (Auto) 0.19 (0.00-0.50) K/uL Baso # (Auto) 0.03 (0.00-0.30) K/uL Abs Immat Gran (auto) 0.01 (0.00-0.30) K/uL Imm/Tot Granulo (auto) 0.2 % Sodium 138 (135-149) mmol/L Potassium 4.1 (3.6-5.1) mmol/L Chloride 111 (96-114) mmol/L Carbon Dioxide 19 L (20-32) mmol/L Anion Gap 8 (7-15) mEq/L BUN 11 (7-30) mg/dL Creatinine 0.6 (0.5-1.5) mg/dL Estimated Creat Clear 122.81 Estimated GFR 107 ml/min Glucose 97 (60-115) mg/dL Calcium 9.1 (8.4-10.6) mg/dL Troponin I < 0.01 L (0.01-0.04) ng/mL SARS-CoV-2 (PCR) Negative SARS-CoV-2 (Negative) Influenza Type A (PCR) Negative PCR FLU A (Negative) Influenza Type B (PCR) Negative PCR FLU B (Negative) RSV (PCR) Negative PCR RSV (Negative) ECG Data Attestation: I personally reviewed and interpreted this ECG as follows: Interpretation: Normal sinus rhythm rate 73 SD 152 QRS axis normal QRS axis. No pathologic Q-waves. ST segment/T wave: No ST segment elevation or depression. QTc: 475 Discharge Plan Discharge Clinical Impression: Cough, Pharyngitis Patient Disposition: Home, Self-Care Condition: Stable Instructions: Acute Cough (ED) Additional Instructions: As we discussed, your cough may be caused by a virus. In that case, it will take a few more days for your body to fight off the viral infection. Because your smoker and because of how longer cough has been going on, were going to put you on a course of antibiotics to treat for possible bacteria. It usually takes 1-2 days for antibiotics to start improving a bacterial infection. Please take the entire 7 day course of antibiotics, even if you get better. If you have worsening cough, worsening pain in your chest, trouble breathing, oxygen measurements below 90% at home, high fever, weakness, or any problems, please come back to the ER right away. If you are not improving (but not getting worse either) please follow-up with your regular doctor or return to the ER within 3-5 days for a recheck. Prescriptions: No Action lisinopril 40 mg tablet 40 mg PO DAILY doxepin 25 mg capsule 25 mg PO QHS amlodipine 10 mg tablet 10 mg PO DAILY hydroxyzine HCl 25 mg tablet 25 mg PO Q6H PRN (Reason: anxiety) Follow Up/Referrals: Kelin Aguirre PA-C [Primary Care Provider] - Stand Alone Forms: [employer] Info Instructions
--- NOTE | 2023-03-20 16:15 | CRLHL7_ITS ---
For Patients: As a result of the Cures Act, medical imaging exams and procedure reports are released immediately into your electronic medical record. You may view this report before your referring provider. If you have questions, please contact your health care provider. INDICATION: Cough, chest pain, shortness of breath.. TECHNIQUE: Chest 2 views. COMPARISON: None. FINDINGS: Cardiovascular and mediastinum: Cardiomediastinal silhouette is within normal limits. Lungs and pleural spaces: Mild bilateral interstitial opacities. No sign of pleural effusion. No pneumothorax. Bones and soft tissues: No significant findings. IMPRESSION: Mild bilateral interstitial opacities can be seen in setting of viral infection, or airways disease. Dictated by Cade Fang MD @ 03/20/2023 6:25:16 PM (Electronically Signed)
[2023-03-20 16:38] LABS: Hematocrit 39.5 % (33.0-51.0); Hemoglobin* 12.9 gm/dL (12.0-16.0); Mean Corpuscular HGB Conc 33 gm/dL (32-36); Mean Corpuscular Hemoglobin 31 pg (26-34); Mean Corpuscular Volume 95 fL (80-100); Neutrophils Percent Auto 53.3 % (42.0-72.0); Platelet Count* 311 K/uL (140-440); Red Blood Count 4.16 m/uL (4.00-5.20); White Blood Count* 5.83 K/uL (4.50-11.00)
[2023-03-20 16:39] LABS: Basophils Absolute Auto 0.03 K/uL (0.00-0.30); Basophils Percent Auto 0.5 % (0.0-3.0); Eosinophils Absolute Auto 0.19 K/uL (0.00-0.50); Eosinophils Percent Auto 3.3 % (0.0-7.0); Immature Granulocytes Abs Auto 0.01 K/uL (0.00-0.30); Immature Granulocytes Pct Auto 0.2 %; Lymphocytes Absolute Auto 1.98 K/uL (0.90-2.90); Monocytes Percent Auto 8.7 % (0.0-11.0); Neutrophils Absolute Auto 3.11 K/uL (1.7-7.0)
[2023-03-20 16:54] LABS: Slide Review Reflex No
[2023-03-20] MEDS: ONDANSETRON ODT 4 MG TAB PO (16:58)
[2023-03-20 16:59] LABS: Chloride* 111 mmol/L (96-114)
[2023-03-20] MEDS: HYDROCODONE-ACETAMIN 5-325 MG 1 TAB PO ×2 (16:59→18:05)
[2023-03-20 17:00] LABS: Potassium* 4.1 mmol/L (3.6-5.1); Sodium* 138 mmol/L (135-149)
--- NOTE | 2023-03-20 17:01 | ED.NURSE ---
Pt reports she does not want to take ibuprofen. She has been taking it at home and it is not helpful. Dr. Buhs verbally notified @ [id number]. Order for [place] tablet placed by provider and administered as ordered.
[2023-03-20 17:02] LABS: Anion Gap 8 mEq/L (7-15); Carbon Dioxide* 19 mmol/L (20-32); Creatinine* 0.6 mg/dL (0.5-1.5); Est. Creatinine Clearance* 122.81; Estimated Glomerular Filt Rate 107 ml/min
[2023-03-20 17:03] LABS: Blood Urea Nitrogen* 11 mg/dL (7-30); Calcium* 9.1 mg/dL (8.4-10.6); Glucose* 97 mg/dL (60-115)
[2023-03-20 17:33] LABS: Troponin I* < 0.01 ng/mL (0.01-0.04)
== END 2023-03-20 19:20 | disposition home or self-care (01) ==
PROVIDERS: Emergency Provider Emergency Medicine; PCP Physician Assistant Medical
DX: J02.9 Acute pharyngitis, unspecified (principal)
CPT/HCPCS: 36415; 71046; 80048; 84484; 85025; 87631; 93005; 99283; 99284; A9270

== ENCOUNTER 2023-10-19 14:30 | Emergency (ER) | payer BC, SELFPAY ==
[2023-10-19] VITALS (20 sets, daily range): BP systolic 133–193; BP diastolic 81–159; PULSE 91–127; RESP 12–20; TEMP 36.6; O2SAT 90–98; BMI 32.3
[2023-10-19] MEDS: 0.9 % SODIUM CHLORIDE 1000 ml 1,000 ML IV ×2 (14:55→16:12)
[2023-10-19] MEDS: LORazepam 2 MG/ML inj 1 MG IVP ×2 (14:55→17:22)
[2023-10-19 15:00] LABS: Basophils Percent Auto 0.3 % (0.0-3.0); Eosinophils Percent Auto 0.1 % (0.0-7.0); Hematocrit 41.9 % (33.0-51.0); Immature Granulocytes Pct Auto 0.2 %; Lymphocytes Percent Auto 7.8 % (20-44); Mean Corpuscular HGB Conc 33 gm/dL (32-36); Mean Corpuscular Hemoglobin 32 pg (26-34); Mean Corpuscular Volume 95 fL (80-100); Monocytes Percent Auto 3.5 % (0.0-11.0); Neutrophils Percent Auto 88.1 % (42.0-72.0); Platelet Count* 312 K/uL (140-440); RDW Coefficient of Variation % 13.1 % (11.5-15.5); Red Blood Count 4.39 m/uL (4.00-5.20); White Blood Count* 14.96 K/uL (4.50-11.00)
--- NOTE | 2023-10-19 15:03 | ED_ITS ---
HPI - General Adult General Chief complaint: Alcohol/Intoxication Stated complaint: alcohol detox Time Seen by Provider: 10/19/23 14:38 Source: patient Mode of arrival: ambulatory Limitations: no limitations History of Present Illness HPI narrative: 53-year-old female coming in today requesting help with alcohol detox. Patient states that she drinks more than a L of vodka per day and has been doing this for quite some time, she cannot quantify that amount of time. She states that she wants to stop drinking but is concerned about withdrawals. Her last drink was approximately 12 hours ago. She states that she is very jittery, anxious and feels terrible from head to toe. She denies any recent fevers, vomiting. No significant diarrhea, no chest or abdominal pain or urinary symptoms. Continues to smoke a pack of cigarettes per day. Related Data Allergies Allergy/AdvReac Type Severity Reaction Status Date / Time No Known Drug Allergies Allergy Verified 03/20/23 15:22 Review of Systems Status of ROS: Reports: 10 or more systems reviewed and unremarkable except as noted in History and below PFSH PFS Social History Smoking Status: Heavy tobacco smoker What tobacco products do you use: cigarettes Smoking packs per day: 1 Smoking cigarettes per day: 20.0 Years smoked: 40 Smoking pack-years: 40.00 Do you use any of these nicotine containing products: None Second hand tobacco smoke exposure: No How often do you have a drink containing alcohol: 4 or more times a week How many standard drinks containing alcohol do you have on a typical day: 10 or more How often do you have six or more drinks on one occasion: Daily or almost daily AUDIT-C Alcohol total score: 12 Non-prescribed substance use: denies use service: No Exam Narrative: Exam Narrative: Well-nourished well-developed patient, tremulous. Tearful. Alert and oriented. Answers questions appropriately. Thoughts are goal oriented and rational. No tangential or magical thinking noted. HEENT: Normocephalic atraumatic. Pupils are equally round reactive to light. Extraocular muscles are intact. Conjunctivae are moist without any icterus noted. Moist mucous membranes. Posterior pharynx is normal. Neck is soft without any lymphadenopathy or thyromegaly. No masses are appreciated. Cardiovascular: Tachycardic, regular rhythm. Lungs: Clear to auscultation bilaterally no wheezes rhonchi or rales are appreciated. Patient takes deep breaths without any discomfort. Abdomen: Soft and nontender nondistended with normal bowel sounds. Protuberant. Extremities: Bilateral lower extremities are without edema. Skin: Well perfused. Const: Vital Signs, click to edit/add: Vital Signs - 24 hr 10/19/23 14:37 10/19/23 14:56 10/19/23 14:58 Temperature 97.8 F Pulse Rate 117 H 113 H Pulse Rate [Pulse Oximeter] 127 H Respiratory Rate 20 Blood Pressure 176/159 H Blood Pressure [Le ft Upper Arm] 193/107 H Pulse Oximetry 97 97 97 Oxygen Delivery Me thod Room Air 10/19/23 15:00 10/19/23 15:02 10/19/23 15:30 Temperature Pulse Rate 103 H 101 H 93 Pulse Rate [Pulse Oximeter] Respiratory Rate Blood Pressure 147/94 H Blood Pressure [Le ft Upper Arm] Pulse Oximetry 94 93 90 Oxygen Delivery Me thod 10/19/23 15:31 10/19/23 16:00 10/19/23 16:01 Temperature Pulse Rate 99 101 H 103 H Pulse Rate [Pulse Oximeter] Respiratory Rate Blood Pressure 167/89 H 153/87 H Blood Pressure [Le ft Upper Arm] Pulse Oximetry 91 94 95 Oxygen Delivery Me thod 10/19/23 16:03 10/19/23 16:03 10/19/23 16:32 Temperature Pulse Rate 115 H Pulse Rate [Pulse Oximeter] 107 H Respiratory Rate 12 Blood Pressure Blood Pressure [Le ft Upper Arm] Pulse Oximetry 94 94 98 Oxygen Delivery Me thod Room Air 10/19/23 17:00 10/19/23 17:02 Temperature Pulse Rate 103 H 101 H Pulse Rate [Pulse Oximeter] Respiratory Rate Blood Pressure 169/109 H Blood Pressure [Le ft Upper Arm] Pulse Oximetry 97 97 Oxygen Delivery Me thod Course Course ED Course: IV is established an Ativan, phenobarbital and IV fluids were ordered. Patient did feel better with treatment, was able to take a nap while she was here. EKG, read by me, shows sinus tachycardia with a pulse of 119. Blood work showed an elevated white cell count at almost 15. Normal INR. Chemistries were unremarkable aside from a slightly elevated anion gap at 17. Lactate was elevated at 3.5. LFTs slightly elevated. Normal troponin. Normal TSH. Blood alcohol 0.02. She urine drug screen positive for barbiturates, opiates and marijuana. 2nd L of fluids was started. Pulse came down to 101. Repeat lactate came back at 1 Discussed results with patient. We discussed next steps and patient is willing to go to detox at this time. Vital Signs Vital signs: Initial Vital Signs Temperature 97.8 F 10/19/23 14:37 Temperature Source Temporal Artery Scan 10/19/23 14:37 Pulse Rate 127 H 10/19/23 14:37 Pulse Rhythm Regular 10/19/23 14:37 Respiratory Rate 20 10/19/23 14:37 Blood Pressure 193/107 H 10/19/23 14:37 Blood Pressure Mean 135 H 10/19/23 14:37 Blood Pressure Position Sitting 10/19/23 14:37 Pulse Oximetry 97 10/19/23 14:37 Oxygen Delivery Method Room Air 10/19/23 14:37 Vital Signs Temperature 97.8 F 10/19/23 14:37 Pulse Rate 127 H 10/19/23 14:37 Respiratory Rate 20 10/19/23 14:37 Blood Pressure 193/107 H 10/19/23 14:37 Pulse Oximetry 97 10/19/23 14:37 Oxygen Delivery Method Room Air 10/19/23 14:37 Temperature 97.8 F 10/19/23 14:37 Pulse Rate 101 H 10/19/23 17:02 Respiratory Rate 12 10/19/23 16:03 Blood Pressure 169/109 H 10/19/23 17:02 Pulse Oximetry 97 10/19/23 17:02 Oxygen Delivery Method Room Air 10/19/23 16:03 Medications Administered Medications: Discontinued Medications Generic Name Dose Route Start Last Admin Trade Name Freq PRN Reason Stop Dose Admin Sodium Chloride 1,000 mls @ 1,000 mls/hr 10/19/23 15:00 10/19/23 16:11 0.9 % Sodium Chloride 1000 Ml IV 10/19/23 15:59 Infused .Q1H MILVIA Infusion Phenobarbital 130 mg/ Sodium 102 mls @ 204 mls/hr 10/19/23 14:46 10/19/23 15:45 Chloride IVPB 10/19/23 14:47 Infused ONCE ONE Infusion Sodium Chloride 1,000 mls @ 1,000 mls/hr 10/19/23 15:45 10/19/23 17:22 0.9 % Sodium Chloride 1000 Ml IV 10/19/23 16:44 Infused .Q1H MILVIA Infusion Lorazepam 1 mg 10/19/23 14:46 10/19/23 14:55 Lorazepam 2 Mg/Ml Inj IVP 10/19/23 14:47 1 mg ONCE ONE Administration Lorazepam 1 mg 10/19/23 17:56 10/19/23 17:22 Lorazepam 2 Mg/Ml Inj IVP 10/19/23 17:57 1 mg ONCE ONE Administration Medical Decision Making MDM Narrative Medical decision making narrative: 53-year-old female in acute alcohol withdrawal. Patient will be transferred to detox. Lab Data Lab results reviewed: Yes I reviewed the patient's lab results Labs: Lab Results 10/19/23 10/19/23 10/19/23 Range/Units 14:50 16:32 17:09 WBC 14.96 H (4.50-11.00) K/uL RBC 4.39 (4.00-5.20) m/uL Hgb 14.0 (12.0-16.0) gm/dL Hct 41.9 (33.0-51.0) % MCV 95 (80-100) fL MCH 32 (26-34) pg MCHC 33 (32-36) gm/dL RDW Coeff of Yael 13.1 (11.5-15.5) % Plt Count 312 (140-440) K/uL Neut % (Auto) 88.1 H (42.0-72.0) % Lymph % (Auto) 7.8 L (20-44) % [place] % (Auto) 3.5 (0.0-11.0) % Eos % (Auto) 0.1 (0.0-7.0) % Baso % (Auto) 0.3 (0.0-3.0) % Neut # (Auto) 13.20 H (1.7-7.0) K/uL Lymph # (Auto) 1.20 (0.90-2.90) K/uL [place] # (Auto) 0.50 (0.00-0.90) K/UL Eos # (Auto) 0.00 (0.00-0.50) K/uL Baso # (Auto) 0.00 (0.00-0.30) K/uL Abs Immat Gran (auto) 0.00 (0.00-0.30) K/uL Imm/Tot Granulo (auto) 0.2 % INR 0.86 L (0.91-1.10) Sodium 135 (135-149) mmol/L Potassium 4.3 (3.6-5.1) mmol/L Chloride 99 (96-114) mmol/L Carbon Dioxide 19 L (20-32) mmol/L Anion Gap 17 H (7-15) mEq/L BUN 13 (7-30) mg/dL Creatinine 0.6 (0.5-1.5) mg/dL Estimated Creat Clear 121.38 Estimated GFR 106 ml/min Glucose 161 H (60-115) mg/dL Lactate 3.5 H 1.0 (0.5-1.9) mmol/L Calcium 9.2 (8.4-10.6) mg/dL Magnesium 1.7 (1.5-2.6) mg/dL Total Bilirubin 0.7 (0.1-1.5) mg/dL Direct Bilirubin 0.4 (0.0-0.5) mg/dL AST 69 H (12-35) U/L ALT 84 H (4-35) U/L Alkaline Phosphatase 84 (40-150) U/L Troponin I < 0.01 L (0.01-0.04) ng/mL C-Reactive Protein 0.9 (0.5-1.0) mg/dL Total Protein 7.7 (6.0-8.3) g/dL Albumin 5.0 (3.3-5.0) g/dL Lipase 158 (23-300) U/L TSH 0.769 (0.270-4.20) uIU/mL Urine Color Yellow (Yellow) Urine Appearance Clear (Clear) Urine pH 7.0 (5.0-8.5) Ur Specific [place] 1.015 (1.000-1.030) Urine Protein Negative (Negative) Urine Glucose (UA) Negative (Negative) Urine Ketones Negative (Negative) Urine Blood Negative (Negative) Urine Nitrite Negative (Negative) Urine Bilirubin Negative (Negative) Urine Urobilinogen 1.0 (0.2-1.0) Ur Leukocyte Esterase Negative (Negative) Urine RBC 0-2 (0-2) Urine WBC 0-2 (0-5) Ur Squamous Epith Cells Few (None-Few) Urine Bacteria None (None) Salicylates < 1.0 L (1.0-10) mg/dL Urine Opiates Screen POSITIVE A (Negative) Ur Oxycodone Screen Negative (Negative) Urine Methadone Screen Negative (Negative) Acetaminophen < 10.0 L (10.0-30.0) ug/mL Ur Barbiturates Screen POSITIVE A (Negative) U Tricyclic Antidepress Negative (Negative) Ur Phencyclidine Scrn Negative (Negative) Ur Amphetamines Screen Negative (Negative) U Methamphetamines Scrn Negative (Negative) U Benzodiazepines Scrn Negative (Negative) Urine Cocaine Screen Negative (Negative) U Marijuana (THC) Screen POSITIVE A (Negative) Ur Drug Screen Comment See Note Ethyl Alcohol 0.02 (0.01-0.03) % ECG Data Attestation: I personally reviewed and interpreted this ECG as follows: Discharge Plan Discharge Clinical Impression: Alcohol withdrawal syndrome, Alcohol use disorder, Polysubstance use disorder Patient Disposition: Xfer Other Condition: Stable Stand Alone Forms: [employer] Info Instructions
[2023-10-19 15:07] LABS: Slide Review Reflex No
[2023-10-19] MEDS: PHENobarbitaL 130 MG in 0.9 % SODIUM CHLORIDE 100 ml 100 ML 204 MG IVPB (15:15)
[2023-10-19 15:21] LABS: INR 0.86 (0.91-1.10); Prothrombin Time 12.2 Seconds
[2023-10-19 15:23] LABS: Chloride* 99 mmol/L (96-114)
[2023-10-19 15:24] LABS: Potassium* 4.3 mmol/L (3.6-5.1); Sodium* 135 mmol/L (135-149)
[2023-10-19 15:26] LABS: Creatinine* 0.6 mg/dL (0.5-1.5); Est. Creatinine Clearance* 121.38; Estimated Glomerular Filt Rate 106 ml/min
[2023-10-19 15:27] LABS: Alanine Aminotransferase* 84 U/L (4-35); Alkaline Phosphatase* 84 U/L (40-150); Anion Gap 17 mEq/L (7-15); Aspartate Amino Transferase* 69 U/L (12-35); Bilirubin Direct* 0.4 mg/dL (0.0-0.5); Bilirubin Total* 0.7 mg/dL (0.1-1.5); Blood Urea Nitrogen* 13 mg/dL (7-30); Calcium* 9.2 mg/dL (8.4-10.6); Carbon Dioxide* 19 mmol/L (20-32); Glucose* 161 mg/dL (60-115); Lipase* 158 U/L (23-300); Magnesium* 1.7 mg/dL (1.5-2.6); Total Protein* 7.7 g/dL (6.0-8.3)
[2023-10-19 15:28] LABS: Ethanol* 0.02 % (0.01-0.03)
[2023-10-19 15:30] LABS: C Reactive Protein* 0.9 mg/dL (0.5-1.0)
[2023-10-19 15:38] LABS: Acetaminophen* < 10.0 ug/mL (10.0-30.0)
[2023-10-19 15:39] LABS: Salicylate* < 1.0 mg/dL (1.0-10)
[2023-10-19 16:05] LABS: Lactate* 3.5 mmol/L (0.5-1.9)
[2023-10-19 16:07] LABS: Troponin I* < 0.01 ng/mL (0.01-0.04)
[2023-10-19 16:20] LABS: Thyroid Stimulating Hormone* 0.769 uIU/mL (0.270-4.20)
[2023-10-19 16:52] LABS: Amphetamine Screen Urine Negative (Negative); Barbiturate Screen Urine POSITIVE (Negative); Benzodiazepines Screen Urine Negative (Negative); Cannabinoid Screen Urine POSITIVE (Negative); Cocaine Screen Urine Negative (Negative); Methadone Screen Urine Negative (Negative); Methamphetamines Screen Urine Negative (Negative); Opiate Screen Urine POSITIVE (Negative); Oxycodone Screen Urine Negative (Negative); Phencyclidine Screen Urine Negative (Negative); Tricyclic Antidepressant Urine Negative (Negative)
[2023-10-19 18:04] LABS: Appearance Urine Clear (Clear); Bilirubin Urine Negative (Negative); Blood Urine Negative (Negative); Color Urine Yellow (Yellow); Glucose Urine Negative (Negative); Ketones Urine Negative (Negative); Leukocyte Esterase Urine Negative (Negative); Nitrite Urine Negative (Negative); Protein Urine Negative (Negative); Specific Gravity Urine 1.015 (1.000-1.030)
[2023-10-19 18:11] LABS: RBC Urine 0-2 (0-2); Squamous Epithelial Cell Urine Few (None-Few); WBC Urine 0-2 (0-5)
== END 2023-10-19 19:04 | disposition other institution (70) ==
PROVIDERS: Emergency Provider Family Medicine; PCP Physician Assistant Medical
DX: F10.139 Alcohol abuse with withdrawal, unspecified (principal); F19.20 Other psychoactive substance dependence, uncomplicated
CPT/HCPCS: 36415; 80048; 80076; 80143; 80179; 80306; 81001; 82077; 83605; 83690; 83735; 84443; 84484; 85025; 85610; 86140; 93005; 94761; 96365; 96375; 99285; A0425; A0429; J2060; J2560; J7030

== ENCOUNTER 2023-10-19 18:59 | Outpatient (CLI) | payer BC, SELFPAY ==
--- OUTSIDE RECORDS SUMMARY | 2023-10-21 06:08 | XMS_ITS | Referral Summary ---
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 For routine questions regarding patient records, call [phone] during business hours, M-F 8:00 AM - 5:00 PM Central Time. Record requests for emergency care only can be directed to [phone] at any time.[facility] Encounters Date Type Department Care Team Description 10/20/2023 9:55 PM CDT - Present Hospital Encounter [facility], [facility], Fourth Floor [address] [place] [address] Matt Welsh M.D. Gerson Fox M.D., Ph.D. Ade Santos M.D. 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 10/21/2023 Lesion Brain 10/21/2023 Hypertension Essential Primary 10/21/2023 Resolved Problems Problem Noted Date Diagnosed Date Resolved Date Alcohol Withdrawal Syndrome 10/21/2023 10/21/2023 Social History Tobacco Use Types Packs/Day Years Used Date Smoking Tobacco: Never Assessed Dental Answer Date Recorded Dental: Regular Dentist Unknown 10/20/19 24 Sex and Gender Information Value Date Recorded Sex Assigned at Not on file Gender Identity Not on file Sexual Orientation Not on file Last Filed Vital Signs Vital Sign Reading Time Taken Comments Blood Pressure 150/93 10/21/2023 2:11 AM CDT Pulse 63 10/21/2023 2:11 AM CDT Temperature 36.4 ??C (97.5 ??F) 10/21/2023 2:11 AM CD T Respiratory Rate 16 10/21/2023 2:11 AM CDT Oxygen Saturation 97% 10/21/2023 2:11 AM CDT Inhaled Oxygen Concentration - - Weight 72.5 kg (159 lb 13.3 oz) 10/21/2023 2:11 AM CDT Height 147 cm (4' 9.87) 10/21/2023 2:11 AM CDT Body Mass Index 33.55 10/21/2023 2:11 AM CDT Plan of Treatment Not on file Procedures The patient is currently admitted. The information in this section might not be complete until the patient is discharged. Procedure Name Priority Date/Time Associated Diagnosis Comments TROPONIN T, 2H/6H REFLEX, 5TH GEN, P Timed 10/21/2023 12:[address] HEAD WITHOUT IV CONTRAST RAD - Semiurgent (Fast; most ED patients; some inpatients) 10/20/2023 11:26 PM CDT Procedure Note - Edith Cervantes M.D. / Radiologist, Rst / Jalil Keita M.D. - 10/20/2023 11:26 PM CDTThis note is currently being edited. EXAM: CT HEAD WITHOUT IV CONTRAST COMPARISON: None FINDINGS: No acute intracranial hemorrhage, mass effect, or acute infarct. Largecystic lesion in the right centrum semiovale centered in the rightprecentral gyrus measuring approximately 2.1 x 1.7 x 2.7 cm (series 2,image 26). No surrounding vasogenic edema. No associated mass effect. Normal ventricular caliber. Frothy secretionswithin the sphenoid sinuses which can be seen in acute sinusitis. Mildmucosal thickening of the remainder of the paranasal sinuses. Mastoid aircells are clear. IMPRESSION: 1. No acute intracranial abnormality. Specifically, no intracranialhemorrhage. 2. Indeterminate cystic lesion in the right centrum semiovale mayrepresent a chronic infarct versus sequelae of demyelinating disease. Noassociated vasogenic edema or mass effect. Recommend nonemergent MRI forfurther characterization. HUMAN CHORIONIC GONADOTROPIN (HCG), MARITZA, STAT 10/20/2023 10:39 PM CDT PH BLOOD GAS STAT 10/20/2023 10:39 PM CDT CALCIUM, IONIZED, S/B STAT 10/20/2023 10:39 PM CDT LACTATE FOR SEPSIS WITH REFLEX, POCT STAT 10/20/2023 10:38 PM CDT GLUCOSE POCT, B STAT 10/20/2023 10:38 PM CDT PHOSPHORUS (INORGANIC), S STAT 10/20/2023 10:38 PM CDT MAGNESIUM, S STAT 10/20/2023 10:38 PM CDT ETHANOL, S STAT 10/20/2023 10:38 PM CDT TROPONIN T, BASELINE, 5TH GEN, P STAT 10/20/2023 10:38 PM CDT CBC WITH DIFFERENTIAL, B STAT 10/20/2023 10:38 PM CDT BASIC METABOLIC PANEL, S/P STAT 10/20/2023 10:38 PM CDT ECG STAT 10/20/2023 10:05 PM CDT from Last 3 Months Results * Troponin T, 2 Hour with 6 Hour Reflex, 5th Gen (10/21/2023 12:37 AM CDT) Troponin T, 2 hr, 5th gen 10 <=10 ng/L 10/21/2023 1:02 AM CDT ST[facility] 2H Delta 4 ng/L 10/21/2023 1:02 AM CDT STMA Comment:6 hour collection pe nding. 2H Delta Interp Indeterminate 10/21/2023 1:02 AM CDT [facility] Comment:Indeterminate delta, additional sample suggested Blood 10/21/2023 12:3 7 AM CDT 10/21/2023 12:40 AM CDT Reuben Lemus M.D. LAB BLOOD TROPONIN [facility] [place] [address] [place] [address] * pH (10/20/2023 10:39 PM CDT) pH 7.44 7.35 - 7.45 pH 10/20/2023 10:49 PM CDT [facility] Blood 10/20/2023 10:3 9 PM CDT 10/20/2023 10:45 PM CDT Reuben Lemus M.D. LAB HISTORICAL ORDER S Performing Organization Address [facility] Co de Phone Number [facility] [place] [address] [place] [address] * hCG (Human Chorionic Gonadotropin), Quantitative, (10/20/2023 10:39 PM CDT) HCG, Quantitative, , P 3.2 <5 IU/L 10/20/2023 11:25 PM CDT [facility] Comment: Lyla- and postmenopausal females may have detectable hCG concentrations (<=14 IU/L) due to pituitary production of hCG. ??Serum FSH measurement may aid in ruling out in this population. Blood (Blood, Venous) 10/20/2023 10:39 PM CDT 10/20/2023 11:07 PM CDT Matt Welsh M.D. LAB BLOOD ADD-ON Performing Organization Address City/[facility]/ZIP Co de Phone Number [facility] [place] [address] [place] [address] * Calcium, Ionized (10/20/2023 10:39 PM CDT) Calcium, Ionized, B 5.06 4.65 - 5.30 mg/dL 10/20/2023 10:52 PM CDT [facility] Blood (Blood, Venous) 10/20/2023 10:39 PM CDT 10/20/2023 10:45 PM CDT Reuben Lemus M.D. LAB BLOOD NON ADD-ON Performing Organization Address City/[facility]/ZIP Co de Phone Number [facility] [place] [address] [place] [address], [facility] STMA [facility] [address] [place] [address] * Lactate for Sepsis with Reflex, POCT (10/20/2023 10:38 PM CDT) Lactate, POCT 0.64 0.50 - 2.20 mmol/L 10/20/2023 10:48 PM CDT PCLX Blood (Blood, Venous) 10/20/2023 10:38 PM CDT 10/20/2023 10:38 PM CDT Reuben Lemus M.D. LAB POCT ORDERABLES - DEVICE Performing Organization Address [facility]/ZIP Co de Phone Number [facility] [address] [place] [address], [facility] PCLX [facility] POC [address] [place] [address] * Troponin T, Baseline with 2 Hour/6 Hour Reflex Biomarker Panel (10/20/2023 10:38 PM CDT) Troponin T, Baseline, 5th gen 6 <=10 ng/L 10/20/2023 11:01 PM CDT [facility] Blood (Blood, Venous) 10/20/2023 10:38 PM CDT 10/20/2023 10:45 PM CDT Reuben S Lemus M.D. LAB BLOOD TROPONIN Performing Organization Address City/[facility]/ZIP Co de Phone Number [facility] [place] [address] [place] [address], [facility] STMA [facility] [address] [place] [address] * Ethanol Level, Serum (10/20/2023 10:38 PM CDT) Pathologist [facility] [place] Ethanol, S <10 <10 mg/dL 10/20/2023 11:36 PM CDT DTL Blood (Blood, Venous) 10/20/2023 10:38 PM CDT 10/20/2023 11:16 PM CDT Reuben Lemus M.D. LAB BLOOD NON ADD-ON Performing Organization Address City/[facility] Co de Phone Number [facility] [place] [address] [place] [address], [facility] DTL [facility] [address] [place] [address] * Glucose, POCT (10/20/2023 10:38 PM CDT) [facility] Glucose, POCT, B 130 70 - 140 mg/dL 10/20/2023 10:43 PM CDT PCLX Site Capillary 10/20/2023 10:43 PM CDT PCLX Blood (Blood, Capillary) 10/20/2023 10:38 PM CDT 10/20/2023 10:38 PM CDT Reuben Lemus M.D. LAB POCT ORDERABLES- MANUAL Performing Organization Address City/[facility] Co de Phone Number [facility] [address] [place] [address], [facility] PCLX [facility] P[facility] [address] [place] [address] * CBC with Differential, Blood (10/20/2023 10:38 PM CDT) [facility] Hemoglobin 13.9 11.6 - 15.0 g/dL 10/20/2023 10:47 PM CDT ST[facility] Hematocrit 40.6 35.5 - 44.9 % 10/20/2023 10:47 PM CDT [facility] Erythrocytes 4.27 3.92 - 5.13 x10(12)/L 10/20/2023 10:47 PM CDT [facility] MCV 95.1 78.2 - 97.9 fL 10/20/2023 10:47 PM CDT [facility] RBC Distrib Width 13.2 12.2 - 16.1 % 10/20/2023 10:47 PM CDT [facility] Platelet Count 250 157 - 371 x10(9)/L 10/20/2023 10:47 PM CDT [facility] Leukocytes 6.0 3.4 - 9.6 x10(9)/L 10/20/2023 10:47 PM CDT [facility] Neutrophils 3.44 1.56 - 6.45 x10(9)/L 10/20/2023 10:47 PM CDT DH[facility] Lymphocytes 2.04 0.95 - 3.07 x10(9)/L 10/20/2023 10:47 PM CDT [facility] Monocytes 0.26 0.26 - 0.81 x10(9)/L 10/20/2023 10:47 PM CDT [facility] Eosinophils 0.17 0.03 - 0.48 x10(9)/L 10/20/2023 10:47 PM CDT [facility] Basophils 0.05 0.01 - 0.08 x10(9)/L 10/20/2023 10:47 PM CDT [facility] Blood (Blood, Venous) 10/20/2023 10:38 PM CDT 10/20/2023 10:45 PM CDT Reuben Lemus M.D. LAB BLOOD ADD-ON [facility] [place] [address] [place] [address], [facility] STMA [facility] [address] [place], [place] [address] [place] [address] [place] [address] * Phosphorus Inorganic (10/20/2023 10:38 PM CDT) [facility] Phosphorus (Inorganic), S 3.2 2.5 - 4.5 mg/dL 10/20/2023 11:36 PM CDT DTL Blood (Blood, Venous) 10/20/2023 10:38 PM CDT 10/20/2023 11:16 PM CDT Narrative Authorizing Provider Result Lonnie Lemus M.D. LAB BLOOD ADD-ON Performing Organization Address City/[facility]/ZIP Co de Phone Number [facility] [place] [address] [place] [address], [facility] [address] [place] [address] * Magnesium (10/20/2023 10:38 PM CDT) Magnesium, S 2.0 1.7 - 2.3 mg/dL 10/20/2023 11:36 PM CDT DT Blood (Blood, Venous) 10/20/2023 10:38 PM CDT 10/20/2023 11:16 PM CDT Reuben Lemus M.D. LAB BLOOD ADD-ON Performing Organization Address [facility] Co de Phone Number [facility] [place] [address] [place] [address], [place] [address] * Basic Metabolic Panel (10/20/2023 10:38 PM CDT) Potassium, P 3.8 3.6 - 5.2 mmol/L 10/20/2023 11:01 PM CDT STMA Sodium, P 136 135 - 145 mmol/L 10/20/2023 11:01 PM CDT [facility] Chloride, P 99 98 - 107 mmol/L 10/20/2023 11:01 PM CDT [facility] Bicarbonate, P 26 22 - 29 mmol/L 10/20/2023 11:01 PM CDT [facility] Anion Gap, P 11 7 - 15 10/20/2023 11:01 PM CDT [facility] BUN (Blood Urea Nitrogen), P 9 6 - 21 mg/dL 10/20/2023 11:01 PM CDT [facility] Creatinine 0.70 0.59 - 1.04 mg/dL 10/20/2023 11:01 PM CDT [facility] Estimated GFR (eGFR) >90 >=60 mL/min/BSA 10/20/2023 11:01 PM CDT [facility] Comment: Estimated GFR calculated using the 2020 CKD_EPI creatinine equation. Calcium, Total, P 9.7 8.6 - 10.0 mg/dL 10/20/2023 11:01 PM CDT [facility] Glucose, P 126 70 - 140 mg/dL 10/20/2023 11:01 PM CDT [facility] Blood (Blood, Venous) 10/20/2023 10:38 PM CDT 10/20/2023 10:45 PM CDT Reuben Lemus M.D. LAB BLOOD ADD-ON [facility] [place] [address] [place] [address], [facility] [address] [place] [address] * ECG 12 Lead (10/20/2023 10:05 PM CDT) Ventricular Rate ECG/Min 63 BPM MUSE [place] Interval 144 ms MUSE QRSD Interval 90 ms MUSE QT Interval 462 ms MUSE QTC Interval 472 ms MUSE P [place] 64 degrees MUSE R [place] 55 degrees MUSE T Wave [place] 58 degrees MUSE 10/20/2023 10:0 5 PM CDT 10/20/2023 10:09 PM CDT Impressions MUSE - 10/20/2023 10:09 PM CDT Normal sinus rhythm Cannot rule out Anterior infarct T-wave inversion in Septal leads No previous ECGs available Reviewed by NOEL Jarrell Narrative Procedure Note Xu Ma M.D. - 10/20/2023 IMPRESSION: Normal sinus rhythm Cannot rule out Anterior infarct T-wave inversion in Septal leads No previous ECGs available Reviewed by NOEL Jarrell Matt Welsh M.D. ECG ORDERABLES Performing Organization Address City/[facility]/ZIP Co de Phone Number MUSE NA from Last 3 Months Advance Directives For more information, please contact: [phone] * DNR/DNI (Latest Code Status on File) Date Activated Date Inactivated Comments 10/21/2023 2:10 AM Question Answer Comments DNR/DNI (Do Not Resuscitate/Do Not Intubate): Oralia rubio-Patient
--- OUTSIDE RECORDS SUMMARY | 2023-10-21 06:08 | XMS_ITS | Clinical Summary ---
Author Organization 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. For routine questions regarding patient records, call [phone] during business hours, M-F 8:00 AM - 5:00 PM Central Time. Record requests for emergency care only can be directed to [phone] at any time.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 Gerson Fox M.D., Ph.D. Ade Santos M.D. 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 (HCC) from Last 3 Months Social History Tobacco Use Types Packs/Day Years [...] 10/21/2023 2:11 AM CDT Plan of Treatment Health Maintenance Due Date Last Done Comments CT Colonography 1968 Cologuard 1968 FIT 1968 HIV Screening 1968 Hepatitis C Screening 1968 Mammogram 1968 Office Visit for Blood Press ure Check / Re-check 1968 Pneumococcal vaccine (0-64 y ears) (1 of 2 - PCV) 1974 Hepatitis B Vaccines (1 of 3 - 19+ 3-dose series) 09/17/1987 Zoster Vaccines (1 of 2) 2018 COVID-19 Vaccine (3 - 2022-2 4 season) 2022 08/27/2020, 07/30/2020 Depression Screening (Annual PHQ-2) 03/12/2023 Cervical Cancer Screening 10/05/2023 10/04/2020 Influenza Vaccine (#1) 2023 5, 12/09/2012, 12/15/2011 Lipid (Cholesterol) Screening 10/04/2025 10/04/2020, 05/02/2019 Fasting Glucose for Diabetes Screening 10/19/2026 10/20/2023, 10/20/2023, 08/13/2023, Additional history exists DTaP,Tdap,and Td Vaccines (3 - Td or Tdap) 09/17/2028 09/17/2018, 12/15/2011 Colonoscopy 11/03/2030 11/03/2020 Colorectal Cancer Screening 11/03/2030 Procedures The patient is currently admitted. The [...] Note - Edith Cervantes M.D. / Radiologist, Amelie / Jalil Keita M.D. - 10/20/2023 11:26 [...] CDT Reuben Lemus M.D. LAB BLOOD TROPONIN [facility] [address] [place] [address], [facility] [address] [place] [address] * pH (10/20/2023 10:39 PM CDT) pH 7.44 7.35 - 7.45 pH 10/20/2023 10:49 PM CDT STMA Blood 10/20/2023 10:3 9 PM CDT 10/20/2023 10:45 PM CDT Reuben Lemus M.D. LAB HISTORICAL ORDER S [facility] [address] [place] [address] * hCG (Human Chorionic Gonadotropin), Quantitative, (10/20/2023 10:39 PM CDT) HCG, Quantitative, , P 3.2 <5 IU/L 10/20/2023 11:25 PM CDT [facility] [[email or web address]] Comment: Lyla- and postmenopausal females may have detectable hCG concentrations (<=14 IU/L) due to pituitary production of hCG. ??Serum FSH measurement may aid in ruling out in this population. Blood (Blood, Venous) 10/20/2023 10:39 PM CDT 10/20/2023 11:07 PM CDT Matt Welsh M.D. LAB BLOOD ADD-ON Performing Organization Address City/[facility]/ZIP Co de Phone Number [facility] [address] [place], [place] [address] [place] [address] [address] [place] [address] * Calcium, Ionized (10/20/2023 10:39 PM CDT) Calcium, Ionized, B 5.06 4.65 - 5.30 mg/dL 10/20/2023 10:52 PM CDT [facility] [email or web address]] Blood (Blood, Venous) 10/20/2023 10:39 PM CDT 10/20/2023 10:45 PM CDT Reuben Lemus M.D. LAB BLOOD NON ADD-ON [facility] [address] [place], [place] [address] [place] [address] [address] [place] [address] * Lactate for Sepsis with Reflex, POCT (10/20/2023 10:38 PM CDT) Lactate, POCT 0.64 0.50 - 2.20 mmol/L 10/20/2023 10:48 PM CDT PCLX Blood (Blood, Venous) 10/20/2023 10:38 PM CDT 10/20/2023 10:38 PM CDT Reuben Lemus M.D. LAB POCT ORDERABLES - DEVICE Performing Organization Address City/[facility]/ZIP Co de Phone Number [facility]OC [facility] [address] [place] [address], [facility] PCLX [facility] [address] [place] [address] * Troponin T, Baseline with 2 Hour/6 Hour Reflex Biomarker Panel (10/20/2023 10:38 PM CDT) Troponin T, Baseline, 5th gen 6 <=10 ng/L 10/20/2023 11:01 PM CDT [facility] Blood (Blood, Venous) 10/20/2023 10:38 PM CDT 10/20/2023 10:45 PM CDT Reuben Lemus M.D. LAB BLOOD TROPONIN Performing Organization Address City/[facility]/ZIP Co de Phone Number [facility] [address] [place] [address], [facility] STMA [facility] [address] [place] [address] * Ethanol Level, Serum (10/20/2023 10:38 PM CDT) Ethanol, S <10 <10 mg/dL 10/20/2023 11:36 PM CDT DTL Blood (Blood, Venous) 10/20/2023 10:38 PM CDT 10/20/2023 11:16 PM CDT Reuben Lemus M.D. LAB BLOOD NON ADD-ON [facility] [address] [place] [address], [facility] DTL [facility] [address] [place] [address] * Glucose, POCT (10/20/2023 10:38 PM CDT) Pathologist [facility] Glucose, POCT, B 130 70 - 140 mg/dL 10/20/2023 10:43 PM CDT PCLX Site Capillary 10/20/2023 10:43 PM CDT PCLX Blood (Blood, Capillary) 10/20/2023 10:38 PM CDT 10/20/2023 10:38 PM CDT Reuben Lemus M.D. LAB POCT ORDERABLES- MANUAL Performing Organization Address City/[facility]/ZIP Co de Phone Number [facility] [address] [place] [address], [facility] PCLX [facility] POC [address] [place] [address] * CBC with Differential, Blood (10/20/2023 10:38 PM CDT) Pathologist [facility] Hemoglobin 13.9 11.6 - 15.0 g/dL 10/20/2023 [...] M.D. LAB BLOOD ADD-ON Performing Organization Address City/[facility]/ZIP Co de Phone Number [facility] [address] STMA [facility] [address] [place] [address] * Phosphorus Inorganic (10/20/2023 10:38 PM CDT) Pathologist [facility] Phosphorus (Inorganic), S 3.2 2.5 - 4.5 mg/dL 10/20/2023 11:36 PM CDT DTL Blood (Blood, Venous) 10/20/2023 10:38 PM CDT 10/20/2023 11:16 PM CDT Reuben Lemus M.D. LAB BLOOD ADD-ON [facility] [address] [facility] [address] [place] [address] * Magnesium (10/20/2023 10:38 PM CDT) Magnesium, S 2.0 1.7 - 2.3 mg/dL 10/20/2023 11:36 PM CDT DTL Blood (Blood, Venous) 10/20/2023 10:38 PM CDT 10/20/2023 11:16 PM CDT Narrative Authorizing Provider Result Lonnie Lemus M.D. LAB BLOOD ADD-ON [facility] [address] [place] [address], [facility] DTL [facility] [address] [place] [address] * Basic Metabolic Panel (10/20/2023 10:38 PM [...] CDT Reuben Lemus M.D. LAB BLOOD ADD-ON [facility] [address] [place] [address], [facility] [address] [place] [address] * ECG 12 Lead (10/20/2023 10:05 PM CDT) Ventricular Rate ECG/Min 63 BPM MUSE [place] Interval 144 ms MUSE QRSD Interval 90 ms MUSE QT Interval 462 ms MUSE QTC Interval 472 ms MUSE P [place] 64 degrees MUSE R [place] 55 degrees MUSE T Wave [place] 58 degrees MUSE 10/20/2023 10:0 5 PM [...] Welsh M.D. ECG ORDERABLES Performing Organization Address City/[facility] Co de Phone Number MUSE NA from Last 3 Months Advance Directives For more information, please contact: [phone] * DNR/DNI (Latest Code Status on File) Date Activated Date Inactivated Comments 10/21/2023 2:10 AM Question Answer Comments DNR/DNI (Do Not Resuscitate/Do Not Intubate): Oralia martinezPatient
--- OUTSIDE RECORDS SUMMARY | 2023-10-21 06:08 | XMS_ITS | Encounter Summary ---
Author Organization [facility] Address [address] [place] [id number] Care Team Providers Care Saw Tailer Name Role Phone Unavailable Primary Care Provider Unavailabl e Reason for Visit * Reason Comments Hypertension Encounter Details Date Type Department Care Team (Latest Contact Info) Description 10/20/2023 9:55 PM CDT - Present Hospital Encounter [facility], [facility] Fourth Floor [address] [place] [phone] Matt Welsh M.D. [address] [place] [phone] Gerson Fox M.D., Ph.D. [address] [place] [phone] Ade Santos M.D. 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 - 10/21/2023 1:43 AM CDT [facility] Medicine 6 ([facility]) Admission Note SUBJECTIVE CHIEF COMPLAINT Ms. Marie Saenz is a 53 y.o. female who presents with 'withdrawals'. HISTORY OF PRESENT ILLNESS Ms. Marie Saenz is a 53 y.o. 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 Marie Saenz presented to [facility] ED 10/21/23 with three days of diaphoresis, tremors, decreased appetite, and progressive FALK and atypical CP (not associated with rest or exertion) radiating to neck. No prior reported DTs, WDs requiring hospitalization, SI/HI/AVH, depressive sx, but didreport interest in alcohol rehab after hospital stay. The patient was otherwise found in the ED to have vitals, exam, labs (including ethanol, trop x2 and LA), and imaging (including CTH) approximately stable at baseline except for: significantly more calm but lethargic (improved vs ED admit after given 2mg IV ativan by EMS with subsequent pain improvement). CTH showed old indeterminate cystic lesion R centrum semiovale (unclear if chronic infarct vs demyelinating disease) with non-emergent MRI recommended by radiology). Review of systems x 11 negative except as specified below, and all questions answered to patient's reported satisfaction; patient with capacity confirmed agreement with below evaluation and treatment and DNR/DNI code. Past medical history, surgical history, social history, and family history reviewed and noted above as relevant to the patient's current clinical care. Pt admitted under HIM for alcohol WD. Not on File No current outpatient medications on file prior to encounter. REVIEW OF SYSTEMS Pertinent items are noted in HPI; all other review of systems (x11) was negative. OBJECTIVE VITAL SIGNS Temperature: [36.9 ??C] 36.9 ??C Heart Rate: [53-68] 60 Resp Rate: [13-21] 18 Blood Pressure: (161-204)/(80-169) 163/93 SpO2: [92 %-99 %] 92 % Pulse Rate: [54-72] 59 PHYSICAL EXAM Vitals and nursing note reviewed. Constitutional General: He is not in acute distress. Appearance: He is not ill-appearing. HENT Head: Normocephalic and atraumatic. Eyes Extraocular Movements: Extraocular movements intact. Pupils: Pupils are equal, round, and reactive to light. Cardiovascular Rate and Rhythm: Normal rate and regular rhythm. Pulmonary Effort: No respiratory distress. Breath sounds: No wheezing. Abdominal General: There is no distension. Tenderness: There is no abdominal tenderness. Musculoskeletal General: No swelling or tenderness. Neurological General: No focal deficit present. Mental Status: He is oriented to person, place, and time. Psychiatric Mood and Affect: Mood normal. Behavior: Behavior normal. DIAGNOSTICS I have reviewed the labs, ECG, xray, diagnostics, and echo from last 6 months. ASSESSMENT/PLAN Ms. Marie Saenz is a 53yoF w/ PMH of severe severe alcohol dependence admitted for mild-moderate WD and related HTN urgency associated CP (resolved s/p ativan with admit trop x2 wnl), CIWA protocol started, with pt interested in rehab after hospitalization. 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) #2 Hypertensive Urgency #3 Hypertension #4 Angina Pectoris With Coronary Microvascular Dysfunction (HCC) -wean alfie off librium + benzo prn (lowest effective dose) -titrate HTN rx for SBP avg target <140 as tolerated/indicated unless noted otherwise -advance alfie back to regular diet (pt on admit cautious about po intake given WD) -consider dc thiamine if no further clear indication (started on admit given chronicity/severity ofalcoholism though no clear WKS per HPI which is limited given lethargy and potential limited pt insight) -monitor for refeeding syndrome -confirm stable resolution of lethargy/CP -consider CM consult after 10/21/23 07:00 for drug rehab after hospitalization #4 Chronic Lesion Brain -no clear evidence of acute/progressive process supporting clear net benefit of additional inpt eval/treatment--monitor Diet: liquid diet Tubes/lines: PIV VTE prophylaxis: enoxaparin Code status: DNR/DNI Disposition: rehab I appreciate the opportunity to care for Marie Saenz. I personally spent a total of 40 minutesproviding and coordinating care today. Jayla Petty MD, PhD, PhD, MPH [employer] [facility] Internal Medicine [facility] ([place], [place]) documented in this encounter ED Notes * Reuben Lemus M.D. - 10/21/2023 1:01 AM CDT SUBJECTIVE CHIEF COMPLAINT/REASON FOR VISIT Hypertension HISTORY OF PRESENT ILLNESS Marie Saenz is a 53-year-old female who presents via EMS for alcohol withdrawal, significant hypertension, diaphoresis, and tremors..She has a past medical history of alcohol use disorder, was reported to drink lots and lots of alcohol daily. After further questioning, patient states she drain nearly a bottle of hard liquor nightly. She presented via EMS for significant hypertension with concern of alcohol withdrawal. On presentation, patient was alert and oriented X 4, and reported having tremors, diaphoresis, in addition to head, neck, chest pain. REVIEW OF SYSTEMS Constitutional: Positive for chills and diaphoresis. Cardiovascular: Positive for chest pain. Musculoskeletal: Positive for neck pain. Neurological: Positive for headaches. OBJECTIVE Initial Vitals Temperature 10/20/23 2200 36.9 ??C Pulse Rate 10/20/23 2200 72 Heart Rate 10/20/23 2200 68 Resp Rate 10/20/23 2200 16 Blood Pressure 10/20/23 2200 (!) 204/114 SpO2 10/20/23 2200 94 % Pain Score 10/20/23 2229 7 PHYSICAL EXAMINATION Constitutional: Vitals reviewed. Cardiovascular: Regular rhythm and normal heart sounds. Neurological: Alert and oriented to person, place, and time. Skin: She is diaphoretic. ASSESSMENT/PLAN Assessment and Plan Started patient on a CIDE protocol. Ordered wide range of labs, including CBC, BMP, extended electrolytes, lactate. Given chest pain with radiation to the neck, ordered EKG. This did not demonstrate any significant ST changes. Ordered thiamine, folate, multivitamin due to concern of vitamin deficiency from significant alcohol use. Patient has had improvement in her blood pressure in her symptoms after beginning Ativan. She has received a total of 2 mg of IV Ativan thus far. We will admit patient for further management of her alcohol withdrawal and failed alcohol use remission.. ED Course as of 10/21/23 0124 Sun Oct 21, 2023 0123 Troponin T, 2 hr, 5th gen: [address] Head without IV Contrast IMPRESSION: 1. No acute intracranial abnormality. Specifically, no intracranial hemorrhage. 2. Indeterminate cystic lesion in the right centrum semiovale may represent a chronic infarct versus sequelae of demyelinating disease. No associated vasogenic edema or mass effect. Recommend nonemergent MRI for further characterization. 0124 ECG 12 Lead Negative for significant ST changes. 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 Resident 10/21/23 0126 documented in this encounter Plan of Treatment Pending Results Name Type Priority Associated Diagnoses Date /Time CT Head without IV Contrast Imaging RAD - Semiurgent (Fast; most ED patients; some inpatients) 10/20/2023 11:26 PM CDT Troponin T, 6h, 5th Gen Lab Timed 10/21/2023 5:48 AM CDT Scheduled Orders Name Type Priority Associated Diagnoses Orde r Schedule Drug Screen Urine Lab Routine Routine lab collection (next collection) for 1 Occurrences starting 10/20/2023 until 10/20/2023 Thiamine (Vitamin B1), Whole Blood Lab Routine AM collection: 0 405 (default) for 1 Occurrences starting 10/21/2023 until 10/21/2023 Comprehensive Metabolic Panel Lab Routine AM collection: 0 405 (default) for 1 Occurrences starting 10/22/2023 until 10/22/2023 CBC with Differential, Blood Lab Routine AM collection: 0 405 (default) for 1 Occurrences starting 10/22/2023 until 10/22/2023 documented as of this encounter Procedures The patient is currently admitted. The [...] mass effect. Recommend nonemergent MRI forfurther characterization. PH BLOOD GAS STAT 10/20/2023 10:39 PM CDT HUMAN CHORIONIC GONADOTROPIN (HCG), MARITZA, STAT 10/20/2023 10:39 PM CDT CALCIUM, IONIZED, S/B STAT 10/20/2023 10:39 PM CDT LACTATE FOR SEPSIS WITH REFLEX, POCT STAT 10/20/2023 10:38 PM CDT TROPONIN T, BASELINE, 5TH GEN, P STAT 10/20/2023 10:38 PM CDT ETHANOL, S STAT 10/20/2023 10:38 PM CDT GLUCOSE POCT, B STAT 10/20/2023 10:38 PM CDT CBC WITH DIFFERENTIAL, B STAT 10/20/2023 10:38 PM CDT PHOSPHORUS (INORGANIC), S STAT 10/20/2023 10:38 PM CDT MAGNESIUM, S STAT 10/20/2023 10:38 PM CDT BASIC METABOLIC PANEL, S/P STAT 10/20/2023 10:38 PM CDT ECG STAT 10/20/2023 10:05 PM CDT documented in this encounter Results * Troponin T, 2 Hour with [...] 7 AM CDT 10/21/2023 12:40 AM CDT eRuben Lemus M.D. LAB BLOOD TROPONIN [facility] [address] [place] [address], [facility] [address] [place] [address] * hCG (Human Chorionic Gonadotropin), Quantitative, (10/20/2023 10:39 PM CDT) HCG, Quantitative, , P 3.2 <5 IU/L 10/20/2023 11:25 PM CDT [facility] Comment: Lyla- and postmenopausal females may have detectable hCG concentrations (<=14 IU/L) due to pituitary production of hCG. ??Serum FSH measurement may aid in ruling out in this population. Blood (Blood, Venous) 10/20/2023 10:39 PM CDT 10/20/2023 11:07 PM CDT Matt Welsh M.D. LAB BLOOD ADD-ON Performing Organization Address City/[facility]/ZIP Co de Phone Number [facility] 200 [place] [address], [facility] [address] [place] [address] * pH (10/20/2023 10:39 PM CDT) [facility] pH 7.44 7.35 - 7.45 pH 10/20/2023 10:49 PM CDT [facility] Blood 10/20/2023 10:3 9 PM CDT 10/20/2023 10:45 PM CDT Reuben Lemus M.D. LAB HISTORICAL ORDER S Performing Organization Address City/[facility] Co de Phone Number [facility] [address] [place] [address], [facility] [address] [place] [address] * Calcium, Ionized (10/20/2023 10:39 PM CDT) Pathologist [facility] Calcium, Ionized, B 5.06 4.65 - 5.30 mg/dL 10/20/2023 10:52 PM CDT [facility] Blood (Blood, Venous) 10/20/2023 10:39 PM CDT 10/20/2023 10:45 PM CDT Reuben Lemus M.D. LAB BLOOD NON ADD-ON [facility] [address] [place] [address], [facility] STMA [facility] [address] [place] [address] * Lactate for Sepsis with Reflex, POCT (10/20/2023 10:38 PM CDT) Pathologist [facility] Lactate, POCT 0.64 0.50 - 2.20 mmol/L 10/20/2023 10:48 PM CDT [facility] Blood (Blood, Venous) 10/20/2023 10:38 PM CDT 10/20/2023 10:38 PM CDT Reuben Lemus M.D. LAB POCT ORDERABLES - DEVICE Performing Organization Address City/[facility]/ZIP Co de Phone Number POC [facility] [address] [place] [address], [facility] POC [address] [place] [address] * Glucose, POCT (10/20/2023 10:38 PM CDT) [facility] Glucose, POCT, B 130 70 - 140 mg/dL 10/20/2023 10:43 PM CDT [facility] Site Capillary 10/20/2023 10:43 PM CDT [facility] Blood (Blood, Capillary) 10/20/2023 10:38 PM CDT 10/20/2023 10:38 PM CDT Reuben Lemus M.D. LAB POCT ORDERABLES- MANUAL POC [facility] [address] [place] [address], [facility] PCLX [facility] POC [address] [place] [address] * Phosphorus Inorganic (10/20/2023 10:38 PM CDT) Pathologist [facility] Phosphorus (Inorganic), S 3.2 2.5 - 4.5 mg/dL 10/20/2023 11:36 PM CDT DTL Blood (Blood, Venous) 10/20/2023 10:38 PM CDT 10/20/2023 11:16 PM CDT Reuben Lemus M.D. LAB BLOOD ADD-ON [facility] [address] [place], [place] [phone] [place] [address] 200 [place] [address] * Magnesium (10/20/2023 10:38 PM CDT) Magnesium, S 2.0 1.7 - 2.3 mg/dL 10/20/2023 11:36 PM CDT DT Blood (Blood, Venous) 10/20/2023 10:38 PM CDT 10/20/2023 11:16 PM CDT Reuben Lemus M.D. LAB BLOOD ADD-ON [facility] [address] [place], [place] [address] [address] [place] [address] * Ethanol Level, Serum (10/20/2023 10:38 PM CDT) Ethanol, S <10 <10 mg/dL 10/20/2023 11:36 PM CDT DT Blood (Blood, Venous) 10/20/2023 10:38 PM CDT 10/20/2023 11:16 PM CDT Reuben Lemus M.D. LAB BLOOD NON ADD-ON [facility] [address] [place], [place] [phone] [place] [address] 200 [place] [address] * Troponin T, Baseline with 2 Hour/6 Hour Reflex Biomarker Panel (10/20/2023 10:38 PM CDT) Pathologist [facility] Troponin T, Baseline, 5th gen 6 <=10 ng/L 10/20/2023 11:01 PM CDT [facility] Blood (Blood, Venous) 10/20/2023 10:38 PM CDT 10/20/2023 10:45 PM CDT Reuben Lemus M.D. LAB BLOOD TROPONIN [facility] [address] [place] [address], [facility] [address] [place] [address] * CBC with Differential, Blood (10/20/2023 10:38 PM CDT) [facility] Hemoglobin 13.9 11.6 - 15.0 g/dL 10/20/2023 [...] CDT Reuben Lemus M.D. LAB BLOOD ADD-ON [facility] [address] [place] [address], [facility] STMA [facility] [address] [place] [address] [facility] [address] [place] [address] * Basic Metabolic Panel (10/20/2023 10:38 PM [...] M.D. LAB BLOOD ADD-ON Performing Organization Address [facility] Co de Phone Number [facility] [address] [place] [address], [facility] STMA [facility] [address] [place] [address] * ECG 12 Lead (10/20/2023 10:05 PM CDT) Ventricular Rate ECG/Min 63 BPM MUSE SC Interval 144 ms MUSE QRSD Interval 90 ms MUSE QT Interval 462 ms MUSE QTC Interval 472 ms MUSE P Parsons 64 degrees MUSE R Parsons 55 degrees MUSE T Wave Parsons 58 degrees MUSE 10/20/2023 10:0 5 PM [...] NOEL Jarrell Matt Welsh M.D. 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 (HCC) Alcohol Withdrawal Syndrome (HCC) Hypertensive Urgency Angina Pectoris With Coronary Microvascular Dysfunction (HCC) Lesion Brain Hypertension Essential Primary documented in this encounter Admitting Diagnoses Diagnosis Alcohol Withdrawal Syndrome (HCC) documented in this encounter Administered Medications Active Administered Medications - up to 3 most recent administrations Medication Order MAR Action Action Date Dose Rate Site LORazepam injection 0.5 mg (Ativan) 0.5 mg, intravenous, Every 1 hour PRN, withdrawal, Starting on 10/20/23 at 2210, CIWA Score 10-12 Shortage on injection, use oral when possible For intravenous use, dilute with equal volume of 0.9% NS LORazepam injection 1 mg (Ativan) 1 mg, intravenous, Every 1 hour PRN, withdrawal, Starting on 10/20/23 at 2210, CIWA Score 13-14 Shortage on injection, use oral when possible For intravenous use, dilute with equal volume of 0.9% NS LORazepam injection 1.5 mg (Ativan) 1.5 mg, intravenous, Every 1 hour PRN, withdrawal, Starting on 10/20/23 at 2210, CIWA Score 15-17 Shortage on injection, use oral when possible For intravenous use, dilute with equal volume of 0.9% NS LORazepam injection 2 mg (Ativan) 2 mg, intravenous, Every 1 hour PRN, withdrawal, Starting on 10/20/23 at 2210, CIWA Score 18 or greater Shortage on injection, use oral when possible For intravenous use, dilute with equal volume of 0.9% NS Given 10/20/2023 10:15 PM CDT 2 mg LORazepam tablet 1 mg (Ativan) 1 mg, oral, Every 1 hour PRN, withdrawal, Starting on 10/20/23 at 2210, CIWA Score 10-12 LORazepam tablet 2 mg (Ativan) 2 mg, oral, Every 1 hour PRN, withdrawal, Starting on 10/20/23 at 2210, CIWA Score 13-14 LORazepam tablet 3 mg (Ativan) 3 mg, oral, Every 1 hour PRN, withdrawal, Starting on 10/20/23 at 2210, CIWA Score 15-17 LORazepam tablet 4 mg (Ativan) 4 mg, oral, Every 1 hour PRN, withdrawal, Starting on 10/20/23 at 2210, CIWA Score 18 or greater Inactive Administered Medications - up to 3 most recent administrations Medication Order MAR Action Action Date Dose Rate Site folic acid tablet 1 mg 1 mg, oral, Once, On 10/20/23 at 2212, For 1 dose Given 10/20/2023 10:22 PM CDT 1 mg multivitamin/mineral- tablet 1 tablet 1 tablet, oral, Once, On 10/20/23 at 2212, For 1 dose Given 10/20/2023 10:21 PM CDT 1 tablet thiamine injection 100 mg (Vitamin B-1) 100 mg, intravenous, Once, On 10/20/23 at 2212, For 1 dose Given 10/20/2023 10:20 PM CDT 100 mg documented in this encounter Active and Recently Administered Medications Times are shown in CDT. Scheduled Medication Order 10/19/2023 10/20/2023 10/21/2023 enoxaparin injection 40 mg (Lovenox) 40 mg, subcutaneous, Every evening, First dose on 10/21/23 at 1800 1800 (Due) folic acid tablet 1 mg (COMPLETED) 1 mg, oral, Once, On 10/20/23 at 2212, For 1 dose 2221 (Given - Provider: Anabela Smith R.N.) multivitamin/mineral- tablet 1 tablet (COMPLETED) 1 tablet, oral, Once, On 10/20/23 at 2212, For 1 dose 2220 (Given - Provider: Anabela Smith R.N.) thiamine injection 100 mg (Vitamin B-1) (COMPLETED) 100 mg, intravenous, Once, On 10/20/23 at 2212, For 1 dose 2219 (Given - Provider: Anabela Smith R.N.) thiamine tablet 100 mg (Vitamin B-1) 100 mg, oral, Daily, First dose on 10/21/23 at 0900 0900 (Due) PRN Medication Order 10/19/2023 10/20/2023 10/21/2023 LORazepam injection 0.5 mg (Ativan)(Linked Group 1) 0.5 mg, intravenous, Every 1 hour PRN, withdrawal, Starting on 10/20/23 at 2210, CIWA Score 10-12 Shortage on injection, use oral when possible For intravenous use, dilute with equal volume of 0.9% NS 2214 (See Alternative - Provider: Hever Smith R.N.) LORazepam injection 1 mg (Ativan)(Linked Group 1) 1 mg, intravenous, Every 1 hour PRN, withdrawal, Starting on 8/10/24 at 2210, CIWA Score 13-14 Shortage on injection, use oral when possible For intravenous use, dilute with equal volume of 0.9% NS 2214 (See Alternative - Provider: Hever Smith R.N.) LORazepam injection 1.5 mg (Ativan)(Linked Group 1) 1.5 mg, intravenous, Every 1 hour PRN, withdrawal, Starting on Sat 8 at 2210, CIWA Score 15-17 Shortage on injection, use oral when possible For intravenous use, dilute with equal volume of 0.9% NS 2214 (See Alternative - Provider: Hever Smith R.N.) LORazepam injection 2 mg (Ativan)(Linked Group 1) 2 mg, intravenous, Every 1 hour PRN, withdrawal, Starting on Sat 8 at 2210, CIWA Score 18 or greater Shortage on injection, use oral when possible For intravenous use, dilute with equal volume of 0.9% NS 2214 (Given - Provider: Anabela Smith R.N.) LORazepam tablet 1 mg (Ativan)(Linked Group 1) 1 mg, oral, Every 1 hour PRN, withdrawal, Starting on Sat 8 at 2210, CIWA Score 10-12 2215 (See Alternative - Provider: Hever Smith R.N.) LORazepam tablet 2 mg (Ativan)(Linked Group 1) 2 mg, oral, Every 1 hour PRN, withdrawal, Starting on Sat 8 at 2210, CIWA Score 13-14 2215 (See Alternative - Provider: Hever Smith R.N.) LORazepam tablet 3 mg (Ativan)(Linked Group 1) 3 mg, oral, Every 1 hour PRN, withdrawal, Starting on Sat 8 at 2210, CIWA Score 15-17 2215 (See Alternative - Provider: Hever Smith R.N.) LORazepam tablet 4 mg (Ativan)(Linked Group 1) 4 mg, oral, Every 1 hour PRN, withdrawal, Starting on Sat 8 at 2210, CIWA Score 18 or greater 2215 (See Alternative - Provider: Hever Smith R.N.) Linked Groups Order Group 1: LORazepam tablet 1 mg (Ativan)Jump to med 1 mg, oral, Every 1 hour PRN, withdrawal, Starting on 10/20/23 at 2210, CIWA Score 10-12 Or LORazepam injection 0.5 mg (Ativan)Jump to med 0.5 mg, intravenous, Every 1 hour PRN, withdrawal, Starting on 10/20/23 at 2210, CIWA Score 10-12 Shortage on injection, use oral when possible For intravenous use, dilute with equal volume of 0.9% NS Or LORazepam tablet 2 mg (Ativan)Jump to med 2 mg, oral, Every 1 hour PRN, withdrawal, Starting on 10/20/23 at 2210, CIWA Score 13-14 Or LORazepam injection 1 mg (Ativan)Jump to med 1 mg, intravenous, Every 1 hour PRN, withdrawal, Starting on 10/20/23 at 2210, CIWA Score 13-14 Shortage on injection, use oral when possible For intravenous use, dilute with equal volume of 0.9% NS Or LORazepam tablet 3 mg (Ativan)Jump to med 3 mg, oral, Every 1 hour PRN, withdrawal, Starting on 10/20/23 at 2210, CIWA Score 15-17 Or LORazepam injection 1.5 mg (Ativan)Jump to med 1.5 mg, intravenous, Every 1 hour PRN, withdrawal, Starting on 10/20/23 at 2210, CIWA Score 15-17 Shortage on injection, use oral when possible For intravenous use, dilute with equal volume of 0.9% NS Or LORazepam tablet 4 mg (Ativan)Jump to med 4 mg, oral, Every 1 hour PRN, withdrawal, Starting on 10/20/23 at 2210, CIWA Score 18 or greater Or LORazepam injection 2 mg (Ativan)Jump to med 2 mg, intravenous, Every 1 hour PRN, withdrawal, Starting on 10/20/23 at 2210, CIWA Score 18 or greater Shortage on injection, use oral when possible For intravenous use, dilute with equal volume of 0.9% NS documented in this encounter
--- OUTSIDE RECORDS SUMMARY | 2023-10-21 06:08 | XMS_ITS ---
Author Organization [facility] Address [address] [place] [address] Care Team Providers Care Nuclear Medicine Specialist Name Role Phone Unavailable Unavailable Unavailable Surgery Details Not on file Complications Check Surgery Details section. Procedure Estimated Blood Loss Check Surgery Details section. Procedure Findings Check Surgery Details section. Procedure Specimens Taken Check Surgery Details section.
== END 2023-10-19 19:00 | disposition home or self-care (01) ==
LOC: AMB 10-21 06:06
PROVIDERS: PCP Physician Assistant Medical; Visit Provider Emergency Medicine Emergency Medical Services
DX: F10.939 Alcohol use, unspecified with withdrawal, unspecified (principal); F10.90 Alcohol use, unspecified, uncomplicated; F19.90 Other psychoactive substance use, unspecified, uncomplicated
CPT/HCPCS: A0425; A0429

== ENCOUNTER 2024-12-26 14:42 | Emergency (ER) | payer BC, SELFPAY ==
--- OUTSIDE RECORDS SUMMARY | 2011-10-30 06:30 | XMS_ITS | Continuity of Care Document ---
Author Organization [facility] Address [address] [address] [place] [address] Phone Care Team Providers Care Quality Engineer Name Role Phone Link Hansel VILLEGAS Unavailable Unavailable Allergies, Adverse Reactions, Alerts Substance Reaction Status Criticality No Known allergies Medications Medication Instructions Dosage Effective Dates (start - stop) Status Comments Zofran 4 mg tablet take 1 tablet (4MG) by ORAL route every 8 hours as needed for nausea 4 MG - Active ibuprofen 600 mg tablet - Active acetaminophen 325 mg tablet - Active omeprazole 40 mg capsule,delayed release take 1 capsule (40MG) by ORAL route 2 times every day 30 minutes before breakfast and dinner - No Longer Active bupropion HCl SR 150 mg tablet,extended release take 1 tablet (150MG) by ORAL route every day 150 MG - No Longer Active Procedures Procedure Date Ugi Endo; W/bx 1/mx Level Iv-surg Path Gross/micro 12 Offic Cons New/estab Mod Routine Serum Collection G8447 Sed Rate, Erythrocyte; Auto C-reactive Prot Comp Metabolic Panel Thyroid Stim Hormone Colonoscopy Flex; Dx (nov Pro) 12 Advance Directives Directive Yes / No Effective Date File Name Resuscitation Not Answered N/A N/A Life Support Not Answered N/A N/A Intubation Not Answered N/A N/A Antibiotics Not Answered N/A N/A IV Fluid Support Not Answered N/A N/A Tube Feed Not Answered N/A N/A Other Directive N/A N/A WARNING:The information contained in this section is historical and is provided for information only and does not constitute a legal document or any assurance that the information is still accurate. Please verify the information with the wallis of the legal document before using it for clinical purposes. Encounters Encounter Description Practice Location Reason(s) For Visit Diagnoses Date Provider Providers Copied on Encounter [facility], [address] [address], [place], [id number], [place] tel:[phone] [place] [facility] Hiatal HerniaGastritis W/o BleedDuodenitisG astritis W/o BleedHiatal HerniaDuodenitis 2 Link MD Hamm. [address] [facility], [facility] [address], [place], [place], [address], [place]. tel:[phone] Offic Cons New/estab Mod [facility], [address] [address], [place], [id number], [place] tel:[phone] [facility] Nausea & vomiting (chief complaint) Abdominal pain (chief complaint) Diarrhea (chief complaint) Epigastric PainRUQ PainNausea With Vomiting 2 No Information [facility], [address] [address], [place], [id number], [place] tel:[phone] [facility] DiarrheaHematoch ezia/melenaAbdom inal Pain, UnspecifiedDiarr heaAbdominal Pain, UnspecifiedHemat ochezia/melena 2 No Information Family History Family Member Type Diagnosis Age At Onset First degree family history Problem (finding) malignant neoplasm of ovary First degree family history Problem (finding) No history of Cancer, colon First degree family history Problem (finding) malignant neoplasm of urinary bladder First degree family history Problem (finding) No Family history of No history of Colon Polyps First degree family history Problem (finding) No history of Crohn's First degree family history Problem (finding) No history of Ulcerative Colitis First degree family history Problem (finding) peptic ulceration Payers Payer name Insurance type Covered republican ID Authorjeremiaha tididier(s) [place] Medical Assistance [id number] Social History Type Description Quantity Date Captured Comments Alcohol Use Details Unknown Caffeine Use Details Unknown Tobacco Use Status Smoking Status No Information Sex Female Chief Complaint And Reason For Visit No Information Reason For Referral Reason For Referral No Information History Of Present Illness Encounter Date Complaint History Of Prese nt Illness No Information Functional Status Date Functional Assessmen t No Information Instructions Date Instruction Additional Infor mation No Information Assessments Type Assessment Date No Information Patient Care Teams Name Effective Dates (start - stop) Status Members No Information
--- OUTSIDE RECORDS SUMMARY | 2011-10-30 06:30 | XMS_ITS | Continuity of Care Document ---
Author Organization [facility] Address [address] [address] [place] [address] Phone Care Team Providers Care Rackman Name Role Phone Link Hansel VILLEGAS Unavailable [...] Diagnoses Date Provider Providers Copied on Encounter [facility], [address] [address], [place], [id number], [place] tel:[phone] [place] [facility] Hiatal HerniaGastritis W/o BleedDuodenitisG astritis W/o BleedHiatal HerniaDuodenitis 2 Link MD Hamm. [address] [facility] [address], [place], [place], [id number], [place]. tel:[phone] Offic Cons New/estab Mod [facility], [address] [address], [place], [id number], [place] tel:[phone] [facility] Nausea & vomiting (chief complaint) Abdominal pain (chief complaint) Diarrhea (chief complaint) Epigastric PainRUQ PainNausea With Vomiting 2 No Information [facility], [address] [address], [place], [id number], [place] tel:[phone] [facility] DiarrheaHematoch ezia/melenaAbdom inal Pain, UnspecifiedDiarr heaAbdominal Pain, [...] Insurance type Covered republican ID Authorjeremiaha tididier(s) [place] Medical Assistance [id number] Social History Type Description Quantity Date Captured [...]
--- OUTSIDE RECORDS SUMMARY | 2021-03-09 23:30 | XMS_ITS | Continuity of Care Document ---
Author Organization [facility] Address [address] [address] [place] [address] Phone Care Team Providers Care Pattern Attendant Name Role Phone No Information Unavailable Unavailable Allergies, Adverse Reactions, Alerts Substance Reaction Status Criticality No Known Allergies Active No Inform ation Medications Medication Instructions Dosage Effective Dates (start - stop) Status Comments lisinopril 40 mg tablet take 1 tablet by oral route every day 40 MG - Active trazodone 50 mg tablet take 1 tablet by oral route 2 times every bedtime 50 MG - Active omeprazole 40 mg capsule,delayed release take 1 capsule by oral route every day before a meal 40 MG - Active lactulose 10 gram/15 mL (15 mL) oral solution take 15 milliliter by oral route 2 times every day - Active Procedures Procedure Date New Level 3 Advance Directives Directive Yes / No Effective Date File Name No Information Encounters Encounter Description Practice Location Reason(s) For Visit Diagnoses Date Provider Providers Copied on Encounter [facility], [address] [address], [place], [place], [id number], [place] tel:[phone] No Information No Information New Level 3 [facility], [address] [address], [place], [place], [id number], [place] tel:[phone] [facility] GI Symptoms or Concerns (chief complaint) Constipation, unspecified constipation typeAbdominal bloatingNausea Holsather PAC Jennifer. [address] [facility] [address], [place], [place], [id number], . tel:[phone] Referring Provider: Robyn Garcia DO, [address] [facility] [address], [place], [address]. tel:[phone] [facility], [address] [address], [place], [place], [id number], [place] tel:[phone] [facility] No Information Ovi Milian. [address] [facility], [address], [place], [place], [address], [place]. tel:[phone] Family History Family Member Type Diagnosis Age At Onset Mother Problem (finding) malignant neoplasm of o vary Brother Problem (finding) Alive and well Father Problem (finding) malignant neoplasm of u rinary bladder Sister Problem (finding) Alive and well Immunizations Vaccine Date Status Comments SARS-COV-2 (COVID-19) vaccin e, mRNA, spike protein, LNP, preservative free, 100 mcg or 50 mcg dose administered Note: [facility] bi-direct ional interface ; Source: Other Registry SARS-COV-2 (COVID-19) vaccin e, mRNA, spike protein, LNP, preservative free, 100 mcg or 50 mcg dose administered Note: [facility] bi-direct ional interface ; Source: Other Registry tetanus toxoid, reduced diphtheria toxoid, and acellular pertussis vaccine, adsorbed administered Note: [facility] b i-directional interface ; Source: Other Registry influenza virus vaccine, lance e, attenuated, for intranasal use administered Note: [facility] C bi- directional interface ; Source: Other Registry influenza virus vaccine, lance e, attenuated, for intranasal use administered Note: [facility] C bi- directional interface ; Source: Other Registry diphtheria, tetanus toxoids and acellular pertussis vaccine administered Note: [facility] b i-directional interface ; Source: Other Registry Payers Payer name Insurance type Covered republican ID Authoriza tion(s) No Information Social History Type Description Quantity Date Captured Comments Sex Female Smoking Status No Information Chief Complaint And Reason For Visit No Information Reason For Referral Reason For Referral No Information History Of Present Illness Encounter Date Complaint History Of Prese nt Illness GI Symptoms or Concerns Ms. Koge r is a 50-year-old female that was referred by Dr. Garcia for evaluation of constipation and abdominal pain. Patient has a telephone visit today and is alone. The patient recently was in the emergency room on 02/15/2021 with abdominal pain, abdominal bloating and constipation. At that time she had normal CBC with a hemoglobin of 12.9, UA, BMP, liver tests, CRP, lipase and lactate. She had a CT abdomen and pelvis which showed mild fecalization of the terminal ileum suggestive of slow bowel transit, scattered colonic diverticulosis with no evidence of acute diverticulitis and sequelae of prior epiploic appendagitis of the distal sigmoid colon. The patient was to be admitted but appears she left because the long wait. She followed up the next day with a primary repair for provider. She was started on lactulose 15 milliliters twice daily as well as omeprazole daily. The patient reports that all her life she struggled with constipation. It has been worse more the last few months having harder walk like stools or loose stools. She has a bowel movement maybe 3 or 4 times a week. She describes a lot of abdominal pain and bloating where her stomach is very tense. She also has associated decreased appetite past only eats small meals. She also has nausea. She is on a twice in the past 2 weeks. She does take Tums for some heartburn but does not seem to be helping. She denies any dysphagia He she has tried [id number] align, Colace, gut health and MiraLax. She does not feel that the lactulose really made much of a difference because it have diarrhea but she is not emptying and still feels bloated. She does admit that she has not drink a lot of water and does not get enough fiber in her diet. She had a prior colonoscopy within the past 2 years. Smokes 5 cigarettes a day. No alcohol use. Father with bladder cancer otherwise no family history of gastrointestinal diseases or malignancies. Functional Status Date Functional Assessmen t No Information Instructions Date Instruction Additional Infor janusz - Obtain Colonoscopy report- Complete Miralax constipation cleanse- The following day start Miralax 1 capful daily with goal of 1-2 stools per day- Consider stopping Trazodone as may worsen constipation. - Increase water intake, goal of 64 oz per day.- If you do not get good results with miralax cleanse please call and let me know and could consider gastrografin enema to clean out.- Follow up in 3-4 weeks. Related to Constipation, unspecified constipation type Assessments Type Assessment Date No Information Patient Care Teams Name Effective Dates (start - stop) Status Members No Information
--- OUTSIDE RECORDS SUMMARY | 2021-03-09 23:30 | XMS_ITS | Continuity of Care Document ---
Author Organization [facility] Address [address] [address] [place] [address] Phone Care Team Providers Care Folded Cloth Taper Name Role Phone No Information Unavailable Unavailable [...] Diagnoses Date Provider Providers Copied on Encounter [facility], [address] [address], [place], [place], [id number], [place] tel:[phone] No Information No Information New Level 3 [facility], [address] [address], [place], [place], [address], [place] tel:[phone] [facility] GI Symptoms or Concerns (chief complaint) Constipation, unspecified constipation typeAbdominal bloatingNausea Holsather PAC Jennifer. [address] [facility], [facility] [address], [place], [place], [address], . tel:[phone] Referring Provider: Robyn Garcia DO, [address] [facility], [place], [address]. tel:[phone] [facility], [address] [address], [place], [place], [address], [place] tel:[phone] [facility] No Information Ovi Milian. [address] [facility], [address], [place], [place], [address], [place]. tel:[phone] Family History Family Member Type Diagnosis Age [...] denies any dysphagia He she has tried jppv-ppj-[id number] align, Colace, gut health and MiraLax. She [...]
--- OUTSIDE RECORDS SUMMARY | 2024-12-26 14:44 | XMS_ITS | Clinical Summary ---
Author Organization [facility] Address [address] [place] [address] Care Team Providers Care Biller Name Role Phone Unavailable Primary Care Provider Unavailabl e Source Comments Patient records contain information from all sites at [facility]. For routine questions regarding patient records, call [phone] during business hours, M-F 8:00 AM - 5:00 PM Central Time. Record requests for emergency care only can be directed to [phone] at any time.[facility] Allergies No known active allergies Medications * This document contains information received from the source organization and may not represent a complete record from that organization. acetaminophen (TylenoL) 500 mg tablet Take 2 tablets (1,000 mg total) by mouth every 6 (six) hours as needed for severe pain or score 7-10 of 10, headaches, moderate pain or score 4-6 of 10 or mild pain or score 1-3 of 10. 10/24/2023 Active amLODIPine (Norvasc) 5 mg tablet Take 1 tablet (5 mg total) by mouth daily. 30 tablet 10/24/2023 4:27 PM CDT 10/25/2023 Active melatonin 3 mg tablet Take 1 tablet (3 mg total) by mouth at bedtime as needed for sleep. 60 tablet 10/24/2023 Active multivitamin-ir ay-YL-Kt-minera ls 400 mcg (folic acid) tablet Take 1 tablet by mouth daily. 130 tablet 10/24/2023 4:27 PM CDT 10/25/2023 Active naltrexone (Depade) 50 mg tablet Take 1 tablet (50 mg total) by mouth daily. 30 tablet 10/24/2023 4:27 PM CDT 10/25/2023 Active hydrOXYzine (Atarax) 25 mg tablet Take 1 tablet (25 mg total) by mouth 3 (three) times a day as needed for anxiety. 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 Patient declined 10/21/2023 Humiliation, Afraid, Rape, and Kick questionnair e Answer Date Recorded Within the last year, have y ou been afraid of your partner or ex-partner? No 10/21/2023 Within the last year, have y ou been humiliated or emotionally abused in other ways by your partner or ex-partner? No Within the last year, have y ou been kicked, hit, slapped, or otherwise physically hurt by your partner or ex-partner? No 10/21/2023 Within the last year, have y ou been raped or forced to have any kind of sexual activity by your partner or ex-partner? No 10/21/2023 Hunger Vital Sign Answer Date Recorded Within the past 12 months, y ou worried that your food would run out before you got the money to buy more. Often true 10/21/19 24 Within the past 12 months, t he food you bought just didn't last and you didn't have money to get more. Often true 10/21/2023 PRAPARE - Transportation Answer Date Re corded In the past 12 months, has l ack of transportation kept you from medical appointments or from getting medications? Yes 10/10 In the past 12 months, has l ack of transportation kept you from meetings, work, or from getting things needed for daily living? Yes 10/21/2023 Housing Stability Answer Date Recorded What is your living situation today? I have [facility] to live 10/21/2023 Comments No Sex and Gender Information Value Date Recorded Sex Assigned at Female 10/24/2023 10:01 AM CDT Legal Sex Female 9:54 PM CDT Gender Identity Female 10/24/2023 10:01 AM CDT Sexual Orientation Straight 10/24/2023 10 :01 AM CDT Last Filed Vital Signs Vital Sign Reading Time Taken Comments Blood Pressure 168/89 10/24/2023 3:41 PM CDT Pulse 89 10/24/2023 3:41 PM CDT Temperature 36.5 C (97.7 F) 10/24/2023 3:39 PM CDT Respiratory Rate 16 10/24/2023 9:28 AM CDT Oxygen Saturation 93% 10/24/2023 3:41 PM CDT Inhaled Oxygen Concentration - - Weight [...] 1968 Mammogram 1968 Office Visit for Blood Pressure Check / Re-check 1968 Tobacco Cessation counseling 1968 Hepatitis B Vaccines (1 of 3 - 19+ 3-dose series) 09/17/1987 Pneumococcal vaccine (50+ years) (1 of 2 - PCV) 09/17/1987 Zoster Vaccines (1 of 2) 2018 Cervical/Vaginal Cancer Screening 10/05/2023 10/04/2020 Depression Screening (Annual PHQ-2) 03/12/2024 COVID-19 Vaccine (3 - 2024- season) 2024 08/27/2020, 07/30/2020 Influenza Vaccine (#1) 2024 5, 12/09/2012, 12/15/2011 Lipid (Cholesterol) Screening 10/04/2025 10/04/2020, 05/02/2019 Fasting Glucose for Diabetes Screening 10/29/2026 10/30/2023, 10/22/2023, 10/21/2023, Additional history exists DTaP,Tdap,and Td Vaccines (3 - Td or Tdap) 09/17/2028 09/17/2018, 12/15/2011 Colonoscopy 11/03/2030 11/03/2020 Colorectal Cancer Screening 11/03/2030 IPV Vaccines Aged Out No longer eligi ble based on patient's age to complete this topic Procedures Procedure Name Priority Date/Time Associated Diagnosis Comments BASIC METABOLIC PANEL, S/P Routine 10/22/2023 7:34 AM CDT from Last 3 Months or Most Recently Relevant to Health Maintenance Results * Basic Metabolic Panel (10/22/2023 7:34 AM CDT) Potassium, S 4.2 3.6 - 5.2 mmol/L 10/22/2023 9:09 AM CDT DTL Sodium, S 140 135 - 145 mmol/L 10/22/2023 9:09 AM CDT DTL Chloride, S 104 98 - 107 mmol/L 10/22/2023 9:09 AM CDT DTL Bicarbonate, S 25 22 - 29 mmol/L 10/22/2023 9:09 AM CDT DTL Anion Gap 11 7 - 15 10/22/2023 9:09 AM CDT DTL BUN (Blood Urea Nitrogen), S 11 6 - 21 mg/dL 10/22/2023 9:09 AM CDT DTL Creatinine 0.78 0.59 - 1.04 mg/dL 10/22/2023 9:09 AM CDT DTL Estimated GFR (eGFR) 90 >=60 mL/min/BSA 10/22/2023 9:09 AM CDT DTL Comment: Estimated GFR calculated using the 2020 CKD_EPI creatinine equation. Calcium, Total, S 9.2 8.6 - 10.0 mg/dL 10/22/2023 9:09 AM CDT DTL Glucose, S 95 70 - 140 mg/dL 10/22/2023 9:09 AM CDT DTL Blood (Blood, Venous) 10/22/2023 7:34 AM CDT 10/22/2023 8:46 AM CDT Floresita CASTILLO PSherieACarmenC. LAB BLOOD ADD-ON Damari l Result [facility] [address] [place] [address], [place] DTL [facility] [address] [place] [address] from Last 3 Months or Most Recently Relevant to Health Maintenance [place] [address] Advance Directives For more information, please contact: [phone] * DNR/DNI (Latest Code Status on File) Date Activated Date Inactivated Comments 10/21/2023 2:10 AM 10/24/2023 6:17 PM Question Answer Comments DNR/DNI (Do Not Resuscitate/Do Not Intubate): Di scussed-Patient
--- OUTSIDE RECORDS SUMMARY | 2024-12-26 14:45 | XMS_ITS | Clinical Summary ---
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 terminal ileum, ileocecal valve,appendiceal orifice, and rectum were photographed. Complications: No immediate complications. Estimated Blood Loss & Specimen: Estimated blood loss: none. Specimen collected - None Findings: The perianal and digital rectal examinations were normal. The terminal ileum appeared normal. The entire examined colon appeared normal on direct and retroflexion views. Impressions/Post-Op Diagnosis: - The examined portion of the ileum was normal. - The entire examined colon is normal on direct and retroflexionviews. - No specimens collected. Recommendation: - Patient has a contact number available for emergencies. The signsand symptoms of potential delayed complications were discussed with the patient. Return to normal activities tomorrow. Written discharge instructions were provided to the patient. - Resume previous diet. - Continue present medications. - Repeat colonoscopy in 10 years for screening purposes. Moderate Sedation: Moderate (conscious) sedation was administered by the endoscopy nurse and supervised by the endoscopist. The following parameters were monitored: oxygen saturation, heart rate, respiratory rate, blood pressure, adequacy of pulmonary ventilation and reponse to care. Please refer to the patient's medical record flowsheets and nursing notes for moderate sedation details. Total physician intraservice time was 17 minutes. Matt Aldridge MD 11/03/2020 11:15:49 AM This report has been signed electronically. Note Initiated On: 11/03/2020 10:12 AM Procedure Code(s): --- Professional --- 03747, Colonoscopy, flexible; diagnostic, including collection of specimen(s) bybrushing or washing, when performed (separateprocedure) Diagnosis Code(s): --- Professional --- Z12.11, Encounter for screening formalignant neoplasm of colon CPT copyright 2020 [employer]. All rights reserved. The codes documented in this report are preliminary and upon exhibitor sales reviewmay be revised to meet current compliance requirements. Scope In: 10:56:58 AM Scope Withdrawal Time 0 hours 6 minutes 46 seconds Scope Out: 11:11:24 AM us Matt Aldridge MD PROCEDURE ORD Final Res ult * LIPID PANEL W REFLEX MEASURED LDL (10/04/2020 3:12 PM CDT) CHOLESTEROL,TOTAL 159 100 - 199 mg/dL 10/04/2020 9:10 PM CDT [facility] TRIGLYCERIDES 82 <150 mg/dL 10/04/2020 9:10 PM CDT [facility] HDL CHOLESTEROL 57 >40 mg/dL 9:10 PM CDT [facility] NON-HDL CHOLESTEROL 102 <145 mg/dl 10/04/2020 9:10 PM CDT [facility] CHOL/HDL RATIO 2.79 <4.50 10/04/2020 9:10 PM CDT [facility] LDL CHOLESTEROL 86 <=130 mg/dL 10/04/2020 9:10 PM CDT [facility] VLDL CHOLESTEROL 16 mg/dL 10/05/19 9:10 PM CDT [facility] PROVIDER ORDERED STATUS RANDOM 10/04/2020 9:10 PM CDT [facility] Blood BLOOD SPECIMEN / Unknown Venipuncture / Unknown 10/04/2020 3:12 PM CDT 10/04/2020 3:14 PM CDT us Kelin BLUE CHEMISTRY Final R esult [facility] [address] [place] [address], [place] * GROUP PRESIDENT THIN PREP PAP SCREEN IMAGED (10/04/2020 2:35 PM CDT) Case Report Gynecologic Cytology Report Case: [id number] Authorizing Provider: Kelin Aguirre PA Collected: 10/04/2020 1435 Ordering Location: [facility] Received: 10/04/2020 1515 Clinic First Screen: Ben Rivas Specimen: GROUP PRESIDENT ThinPrep Vial Screening, Cervical 10/14/2020 12:34 PM CDT [facility] [employer] [facility] INTERPRETATION/ RESULT NEGATIVE FOR INTRAEPITHELIAL LESION OR MALIGNANCY (NIL) (none) 10/14/2020 12:34 PM CDT [facility] at 1234 CDT SPECIMEN ADEQUACY Satisfactory for evaluation No endocervical component seen 10/14/2020 12:34 PM CDT [facility] HPV REQUEST HPV if ASCUS 10/14/2020 12:34 PM CDT [facility] Date of LMP unknown 10/14/2020 12:34 PM CDT [facility] Last Pap Date 10/23/16 10/14/2020 12:34 PM CDT [facility] Last Pap Result NIL 12:34 PM CDT [facility] Abnormal Pap or Spraggs Bx in last 5 years No 10/14/2020 12:34 PM CDT [facility] Menstrual Status Postmenopausal 10/14/2020 12:34 PM CDT [facility] Spraggs Bx Done Today No 10/14/2020 12:34 PM CDT [facility] Additional Information None given 10/14/2020 12:34 PM CDT [facility] Comment: Cytology is screened at [facility], [facility] - [address], [place] [address] and [facility] - [address] [place] [address], [place] [address] and [facility] - [address] [place] [address] Interpreted at [facility] - [address] [place] [address], [place] [address] Automated Review Successful 10/14/2020 12:34 PM CDT [facility] [employer] LAB[facility]AT[facility]-C ENTRAL LABORATORY Comment:Specimen processed s uccessfully by automated watch repair technician device, ThinPrep Imaging System, [employer] Note The pap test is a screening technique, not a diagnostic procedure. It is used primarily to screen for squamous cancers and precursor lesions. Published studies have shown that it is subject to both false negative and false positive results. The pap test should not be used as the sole means to diagnose or exclude pre-malignant and malignant lesions. 10/14/2020 12:34 PM CDT [facility] [employer] LABORATORY- ENTRAL LABORATORY Other (Cervical) Non-Blood / Unknown 10/04/2020 2:35 PM CDT 10/04/2020 3:15 PM CDT us Kelin BLUE PATHOLOGY/CYTOLOGY Damari ryder Result [facility] [address] [place] [address], [place] * XR MAMMO BILAT SCREENING (10/26/2016 10:18 AM CDT) Anatomical Region Laterality Modality BREASTS, Breast Left, Breast Right Bilateral Mammography Impressions 10/26/2016 12:34 PM CDT There is no radiographic evidence for malignancy. Recommend annual mammograms. A lay language report of this examination will be provided to the patient. MAMMOGRAM ASSESSMENT: ACR 2 Benign Narrative 10/26/2016 12:34 PM CDT XR MAMMO BILAT SCREENING [[id number]] CLINICAL HISTORY: This is an asymptomatic 46 y.o. patient. INDICATION FOR EXAM: Mammogram Screening. TECHNIQUE: CC & MLO views were obtained. This digital study was evaluated with the assistance of Computer-Aided Detection. COMPARISON FILMS: This is a baseline study. FINDINGS: Mammographically, the breast tissue has scattered fibroglandular densities. No suspicious masses or microcalcifications. Benign appearing calcifications within both breasts. us Kelin BLUE MAMMO Final R esult from Last 3 Months or Most Recently Relevant to Health Maintenance Insurance [facility] * Guarantor: [employer] [facility] [employer] Account Type Relation to Patient Date of Phone Billing Address [facility] [employer] [address] [place] [address] Advance Directives * Full Code (Latest Code Status on File) Date Activated Date Inactivated Comments 09/05/2018 10:50 PM 09/11/2018 2:12 PM Question Answer Comments Code Status Discussion: Not Discussed * Full Code Date Activated Date Inactivated Comments 11/06/2012 1:04 AM 11/10/2012 3:49 PM * Full Code Date Activated Date Inactivated Comments 06/25/2012 4:55 PM 06/28/2012 3:14 PM * Full Code Date Activated Date Inactivated Comments 09/10/2011 11:48 PM 09/12/2011 2:23 PM * Full Code Date Activated Date Inactivated Comments 10/09/2010 1:11 PM 10/11/2010 9:47 PM Care Teams Master Scheduler Relationship Specialty Start Date End Date Kel[place] [address] PCP - General Physician Tool Crib Clerk 01/11/17
[2024-12-26 14:49] VITALS: BP 177/109; PULSE 88; RESP 20; TEMP 36.2; O2SAT 96; BMI 40.4
--- NOTE | 2024-12-26 14:59 | ED.GENADULT ---
HPI - General Adult General Stated complaint: has hives everywhere/itchy Time Seen by Provider: 12/26/24 14:47 History of Present Illness HPI narrative: This 54-year-old female comes in reporting generalized pruritus. She states that this started yesterday in her scalp and now it seems to be almost everywhere. She does not have any new exposures that she knows of. She does not report any skin changes except there is some redness and hives around her neck. Related Data Home Medications ?Medication ?Instructions ?Recorded ?Confirmed amlodipine 10 mg tablet 10 mg PO DAILY 12/11/23 01/07/24 atenolol 25 mg tablet 25 mg PO DAILY 12/11/23 01/07/24 lisinopril 40 mg tablet 40 mg PO DAILY 12/11/23 01/07/24 oyichawopols-myauvghk-toku tab PO 12/11/23 01/07/24 fumarate 19 mg-folic acid 400 mcg tablet (Therapeutic-M) omeprazole 40 mg capsule,delayed 40 mg PO DAILY 12/11/23 01/07/24 release Previous Rx's ?Medication ?Instructions ?Recorded albuterol sulfate 90 mcg/actuation 2 puff inhalation Q4H PRN 12/11/23 aerosol inhaler shortness of breath or wheezing #1 ea Symbicort 160 mcg-4.5 2 puff inhalation BID #10.2 grams 01/07/24 mcg/actuation HFA aerosol inhaler (budesonide-formoterol) benzonatate 200 mg capsule 200 mg PO BID-TID PRN cough #30 01/07/24 caps codeine 10 mg-guaifenesin 100 mg/5 10 ml PO Q4-6H PRN cough #118 mL 01/07/24 mL oral liquid triamcinolone acetonide 0.1 % 1 applic topical BID #30 grams 12/26/24 topical cream Allergies Allergy/AdvReac Type Severity Reaction Status Date / Time No Known Drug Allergies Allergy Verified 12/26/24 14:49 Review of Systems Status of ROS: Reports: 10 or more systems reviewed and unremarkable except as noted in History and below Narrative: Constitutional: No fevers, no weight gain or loss. Eyes: No discharge. No vision changes. HENT: No congestion, no sore throat, no ear pain. Cardiovascular: No chest pain, no palpitations. Respiratory: No shortness of breath, no wheezes, no cough. Gastrointestinal: No abdominal pain, no vomiting, no diarrhea. Genitourinary: No dysuria, no hematuria. Musculoskeletal: Normal range of motion. Skin: Maculopapular rash around the neck. Generalized pruritus. Neurological: No dizziness, weakness, sensory change, speech change. Endo/Heme/Allergies: No bruising or bleeding. No polydipsia. Pysch: no suicidality, no anxiety, no insomnia. All other systems reviewed and are negative. [facility] Social History Smoking Status: Heavy tobacco smoker What tobacco products do you use: cigarettes Smoking packs per day: 1 Smoking cigarettes per day: 20.0 Years smoked: 40 Smoking pack-years: 40.00 Do you use any of these nicotine containing products: None Second hand tobacco smoke exposure: No How often do you have a drink containing alcohol: 4 or more times a week How many standard drinks containing alcohol do you have on a typical day: 10 or more How often do you have six or more drinks on one occasion: Daily or almost daily AUDIT-C Alcohol total score: 12 Non-prescribed substance use: denies use service: No Exam Narrative: Exam Narrative: Constitutional: Well-developed, well-nourished, no acute distress. HEENT: Normocephalic, atraumatic. Neck: Normal range of motion. Nontender. Supple. Heart: Regular. No murmurs. Normal rate. Intact distal pulses. Lungs: Clear to auscultation. No chest discomfort. No wheezes, rhonchi, or rales. Abdomen: Normal bowel sounds. Nontender. No rebound tenderness. Genitalia: Deferred. Back: No midline tenderness. Normal range of motion. Extremities: Normal range of motion. No injury. Skin: Intact. Maculopapular rash around the anterior neck only. Warm. No erythema or pallor. Generalized pruritus. Neurologic: No altered sensation. No weakness. Alert and oriented. Psychiatric: No suicidality. No anxiety or depression. No insomnia. Nursing notes and vitals signs are reviewed. Const: Vital Signs, click to edit/add: Vital Signs - 24 hr 12/26/24 14:49 Temperature 97.2 F L Pulse Rate [Pulse Oximeter] 88 Respiratory Rate 20 Blood Pressure [Ri ght Upper Arm] 177/109 H Pulse Oximetry 96 Oxygen Delivery Me thod Room Air Course Vital Signs Vital signs: Initial Vital Signs Temperature 97.2 F L 12/26/24 14:49 Temperature Source Temporal Artery Scan 12/26/24 14:49 Pulse Rate 88 12/26/24 14:49 Respiratory Rate 20 12/26/24 14:49 Blood Pressure 177/109 H 12/26/24 14:49 Blood Pressure Mean 131 H 12/26/24 14:49 Pulse Oximetry 96 12/26/24 14:49 Oxygen Delivery Method Room Air 12/26/24 14:49 Vital Signs Temperature 97.2 F L 12/26/24 14:49 Pulse Rate 88 12/26/24 14:49 Respiratory Rate 20 12/26/24 14:49 Blood Pressure 177/109 H 12/26/24 14:49 Pulse Oximetry 96 12/26/24 14:49 Oxygen Delivery Method Room Air 12/26/24 14:49 Temperature 97.2 F L 12/26/24 14:49 Pulse Rate 88 12/26/24 14:49 Respiratory Rate 20 12/26/24 14:49 Blood Pressure 177/109 H 12/26/24 14:49 Pulse Oximetry 96 12/26/24 14:49 Oxygen Delivery Method Room Air 12/26/24 14:49 Medical Decision Making MDM Narrative Medical decision making narrative: This patient seems to be reacting to some kind of allergen with generalized pruritus and some maculopapular rash around her neck. She received an oral dose of dexamethasone 10 mg. I did provide a prescription for triamcinolone cream and recommended usage of Lashonda, Claritin, or Zyrtec along with Benadryl cream as directed and needed. Discharge Plan Discharge Clinical Impression: Pruritus Patient Disposition: Home, Self-Care Condition: Stable Additional Instructions: Use triamcinolone cream as needed and directed. Use an vpjq-lym-onvbfsz antihistamine such as Lashonda, Claritin, or Zyrtec also as needed and directed. Follow up with MD return if worsening. Prescriptions: New triamcinolone acetonide 0.1 % cream 1 applic topical BID Qty: 30 0RF No Action budesonide-formoterol [Symbicort] 160-4.5 mcg/actuation HFA aerosol inhaler 2 puff inhalation BID Qty: 10.2 0RF Rx Instructions: OK to use every four hours between twice daily administration for management of symptoms. Be sure to swish mouth with water and spit following each administration to prevent thrush. benzonatate 200 mg capsule 200 mg PO BID-TID PRN (Reason: cough) Qty: 30 0RF codeine-guaifenesin 10-100 mg/5 mL liquid 10 ml PO Q4-6H PRN (Reason: cough) Qty: 118 0RF lisinopril 40 mg tablet 40 mg PO DAILY amlodipine 10 mg tablet 10 mg PO DAILY omeprazole 40 mg capsule,delayed release(DR/EC) 40 mg PO DAILY atenolol 25 mg tablet 25 mg PO DAILY Therapeutic-M 19 mg iron- 400 mcg tablet PO albuterol sulfate 90 mcg/actuation HFA aerosol inhaler 2 puff inhalation Q4H PRN (Reason: shortness of breath or wheezing) Qty: 1 0RF Follow Up/Referrals: Kelin Agiurre PA-C [Primary Care Provider, Family Practice] Stand Alone Forms: [employer] Info Instructions
[2024-12-26 15:36] VITALS: BP 158/87; PULSE 87; RESP 20; TEMP 36.6
== END 2024-12-26 15:37 | disposition home or self-care (01) ==
LOC: ED 15:16
PROVIDERS: Emergency Provider Emergency Medicine Emergency Medical Services; PCP Physician Assistant Medical
DX: L29.9 Pruritus, unspecified (principal); R21 Rash and other nonspecific skin eruption; F17.210 Nicotine dependence, cigarettes, uncomplicated
CPT/HCPCS: 99283; 99284; J1100

== ENCOUNTER 2025-01-02 12:55 | Outpatient (CLI) | payer BC, SELFPAY | END 2025-01-02 12:56 | disposition home or self-care (01) | LOC: INJ CL 12:56 | PROVIDERS: PCP Physician Assistant Medical; Visit Provider Family Medicine | DX: M54.16 Radiculopathy, lumbar region (principal); M51.369 Other intervertebral disc degeneration, lumbar region without mention of lumbar back pain or lower extremity pain | CPT/HCPCS: 62323; J0702; Q9966 ==